=== PATIENT | male | born 1960 | race Caucasian/White ===

== ENCOUNTER 2017-09-16 20:10 | Inpatient (IN) | payer MEDICARE, MEDICAID ==
[~2017-09-16] VITALS: Ht 167.6 cm; Wt 51.7 kg
--- NOTE | 2017-09-16 20:00 | NUR ---
MYNOR RN NOTES RECEIVED REPORT FROM ER NURSE LEA. RECEIVED PATIENT ON GURNEY, AWAKE ON VENT,NON VERBAL.SAEED PICC LINE DOUBLE LUMEN AND LEFT HAND 20G IV LINES ARE NOTED, PATIENT, INTACT. NO IV FLUIDS FOR NOW. PT HAS NO SOB OR LABORED BREATHING. KINGSTON CATHETER IN PLACE DRAINING YELLOW, CLEAR URINE.PT HAS MULTIPLE WOUNDS ON HIS BODY, PICTURES TAKEN.PT IS NPO WITH CLAMPED GT. ALL SAFETY MEASURES IMPLEMENTED, BED IN LOW, LOCKED POSITION, CALL LIGHT IN REACH. WILL CONT. TO MONITOR.
[2017-09-16 20:15] VITALS: BP 90/64
--- NOTE | 2017-09-16 20:43 | NUR ---
SENT BY PMD FROM SN[facility] DT LOW H/H. PATIENT IS AWAKE, NON VERBAL. NOTED VENT AND TRACHE DEPENDENT- SETTING ORDERED AND TOLERATED. PATIENT NOTED WITH GT, NOTED WITH NO RESISTANCE. FC INDWELLING WELL. SKIN IS WARM TO TOUCH AND NON DIAPHORETIC,. PATIENT IS AFEBRILE.. VSS
--- NOTE | 2017-09-16 20:48 | NUR ---
PT RECEIVED FROM TRANSPORT ON VENTILATOR VIA TRACH. PT PLACED ON LTV ON SETTINGS RECEIVED FROM TRANSPORT CHARTED. AMBU BAG AT BEDSIDE. ALARMS SET AND AUDIBLE. DISCONNECT ALARMS CHECKED. VENT PLUGGED INTO RED OUTLET. SUCTIONED A SMALL AMOUNT OF THICK WHITE SECRETIONS. TOLERATING SETTINGS AT THIS TIME. Addendum: 09/16/17 at 2053 by YA MORENO RT Amended: Links added.
[2017-09-16 20:54] LABS: BASOPHILS % (AUTO) 0.5 % (0.0-2.0); EOSINOPHILS % (AUTO) 1.9 % (0.0-6.0); HEMATOCRIT 26 % (39-51); HEMOGLOBIN 9.5 g/dL (13.5-17.5); LYMPHOCYTES # (AUTO) 1.1 /CMM (0.8-4.8); LYMPHOCYTES % (AUTO) 12.9 % (20.0-44.0); MEAN CORPUSCULAR HGB CONC 36 g/dl (31.0-36.0); MEAN CORPUSCULAR VOLUME 102 fL (80-96); MONOCYTES # (AUTO) 0.9 /CMM (0.1-1.30); MONOCYTES % (AUTO) 10.6 % (2.0-12.0); NEUTROPHILS % (AUTO) 74.1 % (43.0-81.0); PLATELET COUNT (AUTO) 339 /CMM (150-450); RDW COEFFICIENT OF VARIATION 16.1 (11.5-15.0); RED BLOOD CELL COUNT(AUTO) 2.57 MIL/uL (4.5-6.0); WHITE BLOOD COUNT (AUTO) 8.2 K/uL (4.3-11.0)
[2017-09-16 21:05] LABS: INR 1.19 (0.85-1.15)
--- NOTE | 2017-09-16 21:05 | NUR ---
DR LANDIN CAME TO SPEAK WITH DR RAMIREZ.
[2017-09-16 21:06] LABS: ALANINE AMINOTRANSFERASE 17 U/L (12-78); ALBUMIN 2.6 g/dL (3.4-5.0); ALKALINE PHOSPHATASE 118 U/L (46-116); ASPARTATE AMINOTRANSFERASE 20 U/L (15-37); BILIRUBIN,DIRECT 0.1 mg/dL (0.0-0.2); BILIRUBIN,TOTAL 0.4 mg/dL (0.2-1.0); CALCIUM, SERUM 9.2 mg/dL (8.5-10.1); CARBON DIOXIDE 24 mmol/L (21-32); CHLORIDE 101 mmol/L (98-107); GLUCOSE 86 mg/dL (74-106); POTASSIUM 4.5 mmol/L (3.5-5.1); SODIUM SERUM 134 mmol/L (136-145); TOTAL PROTEIN, SERUM 8.3 g/dL (6.4-8.2); UREA NITROGEN, BLOOD 9 mg/dL (7-18)
[2017-09-16 21:10] LABS: TROPONIN I < 0.017 ng/mL (0.00-0.056)
--- NOTE | 2017-09-16 21:30 | NUR ---
CALLED NURSING CLINICAL EDUCATION ACADEMIC COORDINATOR AND REQUESTED A TELE BED.
--- NOTE | 2017-09-16 21:36 | NUR ---
PT IS ASSIGNED TO #: [id number], PT IS DIAGNOSED WITH PNEUMOTHORAX, AND DR LANDIN IS THE ACCEPTING MD.
--- NOTE | 2017-09-16 22:15 | NUR ---
REPORT GIVEN TO JOAQUIN SERRANO FOR CONTINUITY OF CARE
[2017-09-16] MEDS ORDERED: ALBU2.5V38 IH (22:22)
[2017-09-16] MEDS ORDERED: IPRA0.2S49 IH (22:22)
[2017-09-16] MEDS ORDERED: ZINC220T GT (22:22)
[2017-09-16] MEDS ORDERED: PROT946L GT (22:22)
[2017-09-16] MEDS ORDERED: ASCO500T10 GT (22:22)
[2017-09-16] MEDS ORDERED: OMEP20TA5 GT (22:22)
[2017-09-16] MEDS ORDERED: L. A1TAB10 GT (22:22)
[2017-09-16] MEDS ORDERED: HYDR-552 GT ×2 (22:22)
[2017-09-16] MEDS ORDERED: LEVO88TA5 GT (22:22)
[2017-09-16] MEDS ORDERED: APIX2.5T GT (22:22)
[2017-09-16] MEDS ORDERED: MIDO10TA GT (22:22)
[2017-09-16] MEDS ORDERED: MULT-213 GT (22:22)
[2017-09-16] MEDS ORDERED: METO10TA3 GT (22:22)
[2017-09-16] MEDS ORDERED: FERR220S6 GT (22:22)
[2017-09-16 22:30] VITALS: BP 102/72
[2017-09-17] VITALS: BP 100/63
[2017-09-17] MEDS ORDERED: METOCLOPRAMIDE HCL 10 MG TABLET GT PRN
[2017-09-17] MEDS ORDERED: HYDROCODONE/APAP 5/325MG 1 EACH TABLET GT PRN
[2017-09-17] MEDS ORDERED: ONDANSETRON HCL/PF 4 MG/2 ML VIAL IVP PRN
[2017-09-17] MEDS ORDERED: Z GUARD REMEDY 2 OZ OINT TP PRN
[2017-09-17] MEDS ORDERED: ALBUTEROL FS 2.5 MG/3 ML VIAL.NEB IH PRN
[2017-09-17] MEDS ORDERED: ZOLPIDEM TARTRATE 5 MG TABLET PO PRN
[2017-09-17] MEDS ORDERED: IPRATROPIUM NEB FS 0.5 MG/2.5 ML AMPUL.NEB IH PRN
[2017-09-17] MEDS ORDERED: MAG HYDROX/AL HYDROX/SIMETH 30 ML UDC PO PRN
[2017-09-17] MEDS ORDERED: ACETAMINOPHEN 325 MG TABLET PO PRN
[2017-09-17] MEDS ORDERED: MAGNESIUM HYDROXIDE 30 ML UDC PO PRN
--- NOTE | 2017-09-17 01:00 | NUR ---
RN SPOKE TO JOAQUIN SERNA FROM [facility] , PER DAPHNE THEY DONT HAVE ADVANCE DIRECTIVE INFORMATION AVAILABLE, GTF ORDER AT FACILITY JEVITY 1.5 @ 70 ML/HR X 16 HRS.
--- NOTE | 2017-09-17 01:06 | NUR ---
RN SPOKE TO TERRIE LANDIN DNP, CONTINUE GTF ORDER FROM FACILITY. JEVITY 1.5 @ 70ML/HR X 16 HRS
[2017-09-17] MEDS ORDERED: JEVITY 1.2 CAL 1,000 ML BOTTLE GT PRN ×3 (01:30→13:30)
[2017-09-17] MEDS ORDERED: GLUCERNA 1.2 1,000 ML BOTTLE NG PRN (02:30)
[2017-09-17 04:00] VITALS: BP 103/64
[2017-09-17] MEDS: MIDODRINE HCL (5MG) 5 MG TABLET GT SCH ×3 (05:16→20:40)
[2017-09-17 06:34] LABS: BASOPHILS % (AUTO) 0.4 % (0.0-2.0); EOSINOPHILS % (AUTO) 1.9 % (0.0-6.0); HEMATOCRIT 27 % (39-51); HEMOGLOBIN 9.2 g/dL (13.5-17.5); LYMPHOCYTES # (AUTO) 1.2 /CMM (0.8-4.8); LYMPHOCYTES % (AUTO) 16.5 % (20.0-44.0); MEAN CORPUSCULAR HGB CONC 34 g/dl (31.0-36.0); MEAN CORPUSCULAR VOLUME 104 fL (80-96); MONOCYTES # (AUTO) 0.8 /CMM (0.1-1.30); MONOCYTES % (AUTO) 11.4 % (2.0-12.0); NEUTROPHILS % (AUTO) 69.8 % (43.0-81.0); PLATELET COUNT (AUTO) 304 /CMM (150-450); RED BLOOD CELL COUNT(AUTO) 2.61 MIL/uL (4.5-6.0); WHITE BLOOD COUNT (AUTO) 7.2 K/uL (4.3-11.0)
[2017-09-17 07:09] LABS: CREATININE 1.1 mg/dL (0.6-1.3); MAGNESIUM 1.9 mg/dL (1.8-2.4); PHOSPHORUS 3.9 mg/dL (2.5-4.9); POTASSIUM 4.4 mmol/L (3.5-5.1)
[2017-09-17 07:28] LABS: THYROID STIMULATING HORMONE 1.076 uIU/mL (0.358-3.74)
[2017-09-17] MEDS ORDERED: BLOOD SUGAR DIAGNOSTIC 1 EACH STRIP IN SCH (07:30)
--- NOTE | 2017-09-17 07:30 | NUR ---
HAND CANDY MOLDER INITIAL NOTES: RECEIVED PT IN BED, AWAKE. RESPONSIVE TO VERBAL AND TACTILE STIMULI. OPENS EYES, NON-VERBAL. ON VENT SETTINGS ORDERED, PT TOLERATES WELL. TRACH PORTEX #[address] ON TELE MONITOR- SR. KINGSTON CATHETER IN PLACE, FLOWING YELLOW URINE. DIAPER ON. GT FEEDING RUNNING ORDERED, GLUCERNA 40CC/HR- TOLERATING WELL. RESIDUAL 10CC NOTED. SAEED PICC LINE IN PLACE, DOUBLE LUMEN. IV TO L HAND #20 GAUGE, PATENT AND FLUSHES WELL. PT IN NO APPARENT DISTRESS AT THIS TIME. BED IN LOW, LOCKED POSITION. CALL LIGHT WITHIN REACH. PLAN OF CARE DISCUSSED WITH PT. WILL CONTINUE TO MONITOR.
[2017-09-17 08:00] VITALS: BP 93/62
[2017-09-17] MEDS ORDERED: DEXTROSE 50%-WATER 50 ML DISP.SYRIN IV PRN ×2 (08:00)
[2017-09-17] MEDS: FERROUS SULFATE UDC 300 MG/5 ML UDC GT SCH (08:38)
[2017-09-17] MEDS: PANTOPRAZOLE 40 MG VIAL IV SCH (08:38)
[2017-09-17] MEDS: LEVOTHYROXINE SODIUM 88 MCG TABLET GT SCH (08:38)
[2017-09-17] MEDS: PROSOURCE / PROSTAT (PYXIS) 30 ML UDC GT SCH ×3 (08:50→16:44)
[2017-09-17] MEDS ORDERED: PROSTAT (PYXIS) 30 ML UDC GT SCH (09:00)
[2017-09-17] MEDS ORDERED: APIXABAN 2.5 MG TABLET PO ONE (09:00)
--- NOTE | 2017-09-17 10:08 | NUR ---
STENCIL PRINTER NOTES: SPOKE WITH DR NIELSON, NOTIFIED RESULTS OF CXR. NEW ORDERS TO REPEAT CXR NOW.
--- NOTE | 2017-09-17 10:59 | NUR ---
RECTIFICATION PRINTER NOTES: SPOKE WITH DIETITIAN. WITH ORDER TO D/C GLUCERNA AND START JEVITY 1.2 AT 40CC/HR. WILL WAIT FOR FURTHER ORDERS.
[2017-09-17] MEDS: BLOOD SUGAR DIAGNOSTIC 1 EACH STRIP IN SCH ×2 (11:15→17:06)
--- NOTE | 2017-09-17 11:18 | NUR ---
MAINTENANCE OPERATOR NOTES: RELAYED CXR RESULTS TO DR NIELSON: INCREASING PNEUMOTHORAX. WITH NEW ORDER RECEIVED TO STOP THE PEEP AND REPEAT CXR TOMORROW. RT AWARE.
[2017-09-17 12:00] VITALS: BP 90/49
--- NOTE | 2017-09-17 13:08 | NUR ---
DIELECTRIC PRESS OPERATOR NOTES: RECEIVED CALL BACK FROM [facility]. WITH ORDERS FOR JEVITY 1.2 AT 55ML/HR X 24HRS, CONTINUE PROSTAT TID, START MULTIVITAMIN QDAY AND VITAMIN C QDAY.
--- NOTE | 2017-09-17 13:40 | NUR ---
SENIOR PLANNING ANALYST NOTES: DR NICE IN TO SEE PT. NEW ORDER RECEIVED FOR L HEEL DEBRIDEMENT. WILL FOLLOW UP WITH RESPONSIBLE CONSTITUTION PARTY FOR CONSENT.
--- NOTE | 2017-09-17 13:50 | NUR ---
INTERNET MARKETING SPECIALIST NOTES FAXED CONSENT FORM FOR RIGHT FOOT WOUND DEBRIDEMENT. TO VINITA BOWSER, RESPONSIBLE CONSTITUTION PARTY, PER HIS REQUEST. WILL FOLLOW UP.
--- NOTE | 2017-09-17 15:40 | NUR ---
HEEL SEAT FLAP STAPLER NOTES: DR. RAMIREZ IN TO SEE PATIENT. NEW ORDERS RECEIVED FOR BILATERAL HIPS AND SACRUM WOUND DEBRIDEMENT. WILL FOLLOW UP WITH RESPONSIBLE LIBERTARIAN FOR CONSENT.
[2017-09-17 16:00] VITALS: BP 120/80
--- NOTE | 2017-09-17 16:41 | NUR ---
LIGHT EQUIPMENT OPERATOR NOTE CONSENT FOR DEBRIDEMENT OBTAINED WITH FAMILY
--- NOTE | 2017-09-17 16:43 | NUR ---
BAR PORTER NOTE CALLED PHARMACY TO GET MIARCLE ALEXANDER STATED THAT WILL BRING SOON
[2017-09-17] MEDS: APIXABAN 2.5 MG TABLET GT SCH (16:44)
[2017-09-17] MEDS: DAKINS QUARTER STRENGTH (0.125%) 480 ML BOTTLE TOP SCH (17:41)
--- NOTE | 2017-09-17 18:15 | NUR ---
PICK UP OPERATOR END NOTES: PT IN BED, AWAKE, EYES OPEN. RESPONSIVE TO VERBAL/TACTILE STIMULI. CONTINUE VENT/TRACH ORDERED. PT TOLERATES WELL. NO SOB NOTED AT THIS TIME. PT IN NO APPARENT DISTRESS. KINGSTON CATH FLOWING YELLOW URINE. PICC LINE FLUSHED AND PATENT. GT FEEDING FLOWING AT 55ML/HR ORDERED. PT TOLERATING WELL. BED IN LOW LOCKED POSITION. CALL LIGHT WITHIN REACH. WILL ENDORSE TO PM SHIFT FOR CONTINUITY OF CARE.
--- NOTE | 2017-09-17 19:15 | NUR ---
GRAPHICS COORDINATOR NOTE PATIENT RECEIVED RESTING COMFORTABLY WITH HOB ELEVATED, NON VERBAL, TRACH TO MECHANICAL VENT ON SETTINGS ORDERED, TELE SR 71, F/C DRAINING TO GRAVITY, SKIN KEPT CLEAN AND DRY, G TUBE PATENT FLUSHING WELL WITH JEVITY 1.2 AT 55 ML/HR, SAEED PICC LINE, PATENT FLUSHING WELL SITE CDI, LEFT HAND #20G SL PATENT FLUSHING WELL, SAFETY MAINTAINED AT ALL TIMES, BED IN LOW LOCKED POSITION, CALL LIGHT WITHIN REACH, WILL CONTINUE TO MONITOR FOR ANY CHANGES IN CONDITION.
[2017-09-17 20:00] VITALS: BP 93/95
[2017-09-18] VITALS: BP 107/70
[2017-09-18 04:00] VITALS: BP 94/64
[2017-09-18] MEDS: MIDODRINE HCL (5MG) 5 MG TABLET GT SCH ×3 (05:08→22:04)
[2017-09-18] MEDS: BLOOD SUGAR DIAGNOSTIC 1 EACH STRIP IN SCH ×4 (06:53→17:54)
--- NOTE | 2017-09-18 07:30 | NUR ---
RN NOTES RECEIVED PATIENT ON [facility] VENT WITH BREATHING NORMAL, EVEN AND UNLABORED. NO SOB NOTED. NO ACUTE DISTRESS NOTED. VENT SETTING REVIEWED AND VERIFIED. TOLERATED WELL. TELE MONITOR REVEALS SR, HR=85. SAEED PICC LINE IS PATENT AND INTACT. CONT ON GT FEED JEVITY 1.2 MARTI @ 55CC/HR. TOLERATED WELL. NO RESIDUAL NOTED. F/C IS PATENT AND INTACT, DRAINING WITH GRAVITY. KEPT CLEAN, DRY AND COMFORTABLE. ALL NEEDS ATTENDED. SAFETY MEASURE OBSERVED. CALL LIGHT WITH IN REACH. WILL CONT TO MONITOR.
[2017-09-18 08:00] VITALS: BP_SYST 109; BP_SYST 126; BP_DIAS 68; BP_DIAS 83
--- NOTE | 2017-09-18 08:10 | NUR ---
WOUND CARE CONSULT WOUND CARE RECEIVED CONSULT FOR MULTIPLE PRESSURE SORES. WOUND CARE WILL DEFER CONSULT AND ALL TREATMENT PLANS TO SURGICAL TEAM WHO ARE CURRENTLY FOLLOWING. PATIENT WITH GIULIANA AT 10, ALL PRESSURE ULCER PREVENTION MEASURES NOTED TO BE IN PLACE AT THIS TIME. LOW AIRLOSS THERAPY NOTED TO BE IN PLACE FOR TREATMENT.
[2017-09-18] MEDS: PANTOPRAZOLE 40 MG VIAL IV SCH (08:53)
[2017-09-18] MEDS: LEVOTHYROXINE SODIUM 88 MCG TABLET GT SCH (08:53)
[2017-09-18] MEDS: MULTIVITAMINS,THERAGRAN 1 UDTAB TABLET GT SCH (08:53)
[2017-09-18] MEDS: FERROUS SULFATE UDC 300 MG/5 ML UDC GT SCH (08:53)
[2017-09-18] MEDS: ASCORBIC ACID 500 MG TABLET GT SCH (08:53)
[2017-09-18] MEDS: APIXABAN 2.5 MG TABLET GT SCH ×2 (08:53→17:54)
[2017-09-18] MEDS: PROSOURCE / PROSTAT (PYXIS) 30 ML UDC GT SCH ×3 (08:55→17:57)
[2017-09-18] MEDS: DAKINS QUARTER STRENGTH (0.125%) 480 ML BOTTLE TOP SCH (08:55)
[2017-09-18] MEDS ORDERED: ZOLPIDEM TARTRATE 5 MG TABLET GT PRN (09:38)
[2017-09-18] MEDS ORDERED: MAG HYDROX/AL HYDROX/SIMETH 30 ML UDC GT PRN (09:38)
[2017-09-18] MEDS ORDERED: MAGNESIUM HYDROXIDE 30 ML UDC GT PRN (09:38)
[2017-09-18 12:00] VITALS: BP 101/69
[2017-09-18 16:00] VITALS: BP 94/60
[2017-09-18] MEDS: INSULIN REGULAR, HUMAN 100 UNIT/ML 3 ML VIAL SQ PRN (17:59)
--- NOTE | 2017-09-18 18:58 | NUR ---
RN NOTES PATIENT ENDORSED TO NEXT SHIFT IN STABLE CONDITION FOR CONTINUITY OF CARE. NO SIGNIFICANT CHANGES NOTED. KEPT CLEAN, DRY AND COMFORTABLE. ALL NEEDS ATTENDED. SAFETY MEASURE OBSERVED. CALL LIGHT WITH IN REACH. WILL CONT TO MONITOR.
[2017-09-18] MEDS: JEVITY 1.2 CAL 1,000 ML BOTTLE GT PRN (19:03)
[2017-09-18 20:00] VITALS: BP 108/67
--- NOTE | 2017-09-18 20:06 | NUR ---
RN NOTES PATIENT RESTING COMFORTABLY IN BED WITH NO RESPIRATORY DISTRESS OR SHORTNESS OF BREATH. BREATHING EVEN AND UNLABORED. NO PHYSICAL MANIFESTATION OF PAIN OR DISCOMFORT. FC PATENT AND INTACT DRAINING CLEAR YELLOW WITH NO FOUL ODOR URINE. NEEDS ATTENDED. KEPT CLEAN AND DRY.
[2017-09-19] VITALS (7 sets, daily range): BP systolic 89–130; BP diastolic 62–72
[2017-09-19] MEDS: INSULIN REGULAR, HUMAN 100 UNIT/ML 3 ML VIAL SQ PRN ×5 (00:17→23:56)
[2017-09-19] MEDS: BLOOD SUGAR DIAGNOSTIC 1 EACH STRIP IN SCH ×5 (00:21→23:42)
--- NOTE | 2017-09-19 04:46 | NUR ---
PT REC'D TRACHED ON [facility] VENT SETTINGS CHARTED. NO RESP DISTRESS NOTED. NO CHANGES MADE THROUGHOUT SHIFT. SX'D THICK YELLOW MOD AMT OF SECRETIONS. AMBU BAG BEDSIDE. ALARMS ARE SET AND AUDIBLE. VENT PLUGGED INTO RED OUTLET. WILL CONTINUE TO MONITOR. Addendum: 09/19/17 at 0447 by CHAO HERNANDEZ RT Amended: Links added.
[2017-09-19] MEDS: MIDODRINE HCL (5MG) 5 MG TABLET GT SCH ×3 (05:41→21:43)
[2017-09-19] MEDS: JEVITY 1.2 CAL 1,000 ML BOTTLE GT PRN (05:48)
--- NOTE | 2017-09-19 06:31 | NUR ---
RN CLOSING NOTES NO SIGNIFICANT CHANGE OF CONDITION. ALERT AND RESPONSIVE, NOTED WITH EYE TRACKING. NON VERBAL. NO RESPIRATORY DISTRESS OR SHORTNESS OF BREATH. BREATHING EVEN AND UNLABORED. VITAL SIGNS WNL. FEEDING WELL TOLERATED. FC IN PLACE. NEEDS ATTENDED. WILL ENDORSE TO AM SHIFT FOR CONTINUITY OF CARE
--- NOTE | 2017-09-19 07:30 | NUR ---
ITEM PROCESSOR OPENING NOTES RECEIVED PT. IN BED ON MECHANICAL VENTILATOR BREATHING UNLABORED. PT. IS ALERT, AND NON VERBAL. PT. IS BREATHING ON OXYGEN WITH A PROTEX SIZE 8 TRACHEOSTOMY, VENT SETTING AC 12, TV 500, FI02 30%, SP02 99%, 85 BPM. NO S/S OF ACUTE DISTRESS. IV ACCESS ON LEFT HAND GAUGE 20 IS INTACT, AND PATENT. PT. HAS A LEFT UPPER ARM CENTRAL LINE, DOUBLE LUMEN. PT. HAS A KINGSTON CATHETER. G TUBE FEEDING RUNNING AT 55 ML/HR. PT. IS ON A FIRST STEP MATTRESS. BED IS IN LOWEST, AND LOCKED POSITION. CALL LIGHT WITHIN REACH. WILL CONTINUE TO ASSESS AND MONITOR.
[2017-09-19] MEDS: APIXABAN 2.5 MG TABLET GT SCH ×2 (09:54→17:25)
[2017-09-19] MEDS: PANTOPRAZOLE 40 MG VIAL IV SCH (10:00)
[2017-09-19] MEDS: FERROUS SULFATE UDC 300 MG/5 ML UDC GT SCH (10:01)
[2017-09-19] MEDS: LEVOTHYROXINE SODIUM 88 MCG TABLET GT SCH (10:01)
[2017-09-19] MEDS: DAKINS QUARTER STRENGTH (0.125%) 480 ML BOTTLE TOP SCH (10:17)
[2017-09-19] MEDS: ASCORBIC ACID 500 MG TABLET GT SCH (10:26)
[2017-09-19] MEDS: MULTIVITAMINS,THERAGRAN 1 UDTAB TABLET GT SCH (10:26)
[2017-09-19] MEDS: PROSOURCE / PROSTAT (PYXIS) 30 ML UDC GT SCH ×3 (10:26→17:13)
--- NOTE | 2017-09-19 19:04 | NUR ---
TOXICS PROGRAM OFFICER CLOSING NOTES PT. IS IN BED ON MECHANICAL VENTILATOR BREATHING UNLABORED. PT. IS ALERT, AND NON VERBAL. PT. IS BREATHING ON OXYGEN WITH A PROTEX SIZE 8 TRACHEOSTOMY, VENT SETTING AC 12, TV 500, FI02 30%, SP02 99%, 89 BPM. NO S/S OF ACUTE DISTRESS. IV ACCESS ON LEFT HAND GAUGE 20 IS INTACT, AND PATENT. PT. HAS A LEFT UPPER ARM CENTRAL LINE, DOUBLE LUMEN. PT. HAS A KINGSTON CATHETER REMOVED 425 CC OF CLEAR, AND PANCHO URINE. G TUBE FEEDING RUNNING AT 55 ML/HR. PT. IS ON A FIRST STEP MATTRESS. WOUND CARE PERFORMED PER MD ORDERS. BED IS IN LOWEST, AND LOCKED POSITION. CALL LIGHT WITHIN REACH. WILL ENDORSE REPORT TO NURSE.
--- NOTE | 2017-09-19 20:16 | NUR ---
CONSULTING GROUP ANALYST OPENING NOTES RECEIVED PT. IN BED ON MECHANICAL VENTILATOR BREATHING UNLABORED. PT. IS ALERT, AND NON VERBAL. PT. IS BREATHING ON OXYGEN WITH A PROTEX SIZE 8 TRACHEOSTOMY, VENT SETTING AC 12, TV 500, FI02 30%, SP02 99%, BP LOW 95/67. NO S/S OF ACUTE DISTRESS. IV ACCESS ON LEFT HAND GAUGE 20 IS INTACT, AND PATENT. PT. HAS A LEFT UPPER ARM CENTRAL LINE, DOUBLE LUMEN. PT. HAS A KINGSTON CATHETER. G TUBE FEEDING RUNNING AT 55 ML/HR. PT. IS ON A FIRST STEP MATTRESS. BED IS IN LOWEST, AND LOCKED POSITION. CALL LIGHT WITHIN REACH. WILL CONTINUE TO ASSESS AND MONITOR.
[2017-09-20] VITALS (8 sets, daily range): BP systolic 84–112; BP diastolic 52–64
[2017-09-20] MEDS: JEVITY 1.2 CAL 1,000 ML BOTTLE GT PRN (04:31)
[2017-09-20] MEDS: MIDODRINE HCL (5MG) 5 MG TABLET GT SCH ×3 (04:32→21:12)
[2017-09-20] MEDS: BLOOD SUGAR DIAGNOSTIC 1 EACH STRIP IN SCH ×4 (05:25→23:55)
--- NOTE | 2017-09-20 06:05 | NUR ---
RN TEL CLOSING NOTE PT ENDORSED STABLE, HOB ELEVATED KEPT CLEAN AND DRY, VS STABLE, BP LOW, ON MIDODRINE DOSE AT 5 AM GIVEN ORDERED, WOUND TX CONT'D ORDERED, WELL REPOSITIONED, WILL ENDORSE TO AM SHIFT NURSE TO CONT WOUND TX AND REPOSITION OF PT, S/P WOUND DEBRIDEMENT 09/18. SAFETY MEASURES UNDER TAKEN.
--- NOTE | 2017-09-20 07:10 | NUR ---
CONSTRUCTION MANAGEMENT INSTRUCTOR OPENING NOTES RECEIVED PT IN BED ,HAS TRACH AND VENTILATOR BREATHING UNLABORED. PT IS ALERT, AND NON VERBAL. VENT SETTING AC 12, TV 500, FI02 30% . NO S/S OF ACUTE DISTRESS. IV ACCESS ON LEFT HAND GAUGE 20 IS INTACT, AND PATENT. PT. HAS A LEFT UPPER ARM CENTRAL LINE, DOUBLE LUMEN. HAS A KINGSTON CATHETER. G TUBE FEEDING RUNNING AT 55 ML/HR. PT IS ON A FIRST STEP MATTRESS. BED IS IN LOWEST, AND LOCKED POSITION.SRX3. CALL LIGHT WITHIN REACH. WILL CONTINUE TO MONITOR.
[2017-09-20] MEDS: PANTOPRAZOLE 40 MG VIAL IV SCH (08:09)
[2017-09-20] MEDS: MULTIVITAMINS,THERAGRAN 1 UDTAB TABLET GT SCH (08:09)
[2017-09-20] MEDS: FERROUS SULFATE UDC 300 MG/5 ML UDC GT SCH (08:09)
[2017-09-20] MEDS: PROSOURCE / PROSTAT (PYXIS) 30 ML UDC GT SCH ×3 (08:09→17:34)
[2017-09-20] MEDS: APIXABAN 2.5 MG TABLET GT SCH ×2 (08:09→17:35)
[2017-09-20] MEDS: ASCORBIC ACID 500 MG TABLET GT SCH (08:09)
[2017-09-20] MEDS: LEVOTHYROXINE SODIUM 88 MCG TABLET GT SCH (08:09)
[2017-09-20] MEDS: DAKINS QUARTER STRENGTH (0.125%) 480 ML BOTTLE TOP SCH (08:10)
[2017-09-20] MEDS: INSULIN REGULAR, HUMAN 100 UNIT/ML 3 ML VIAL SQ PRN (12:10)
--- NOTE | 2017-09-20 13:24 | NUR ---
RN NOTES NOTED WITH BLOOD PRESSURE OF 84/52.MIDODRINE GIVEN.BLOOD PRESSURE NOT GETTING STABILIZED RECHECKED BP 79/42. MADE AWARE.GOT NEW ORDER FOR IV NS BOLUS [id number].MADE AWARE ABOUT THE TEMP OF 101.8F.TYLENOL GIVEN AND ON COOLING MEASURES.CONTINUE TO MONITOR.
[2017-09-20] MEDS ORDERED: IV NS 0.9% 500 ML IV ONE (13:30)
--- NOTE | 2017-09-20 14:15 | NUR ---
RN NOTES RECHECKED BLOOD PRESSURE.101/52.CONTINUE TO MONITOR.
--- NOTE | 2017-09-20 18:34 | NUR ---
GARMENT CUTTER SHIFT END NOTES PT IN BED ,HAS TRACH AND VENTILATOR BREATHING UNLABORED. PT IS ALERT, AND NON VERBAL. VENT SETTING AC 12, TV 500, FI02 30% . NO S/S OF ACUTE DISTRESS. IV ACCESS ON LEFT HAND GAUGE 20 IS INTACT, AND PATENT. PT. HAS A LEFT UPPER ARM CENTRAL LINE, DOUBLE LUMEN. HAS A KINGSTON CATHETER. G TUBE FEEDING RUNNING AT 55 ML/HR. PT IS ON A FIRST STEP MATTRESS. BED IS IN LOWEST, AND LOCKED POSITION.SRX3. CALL LIGHT WITHIN REACH. BP IS 120/67.WILL ENDORSE TO PM NURSE FOR JEWELL.
--- NOTE | 2017-09-20 19:11 | NUR ---
CARGO MATE OPENING NOTES RECEIVED PT IN BED ,HAS TRACH AND VENTILATOR BREATHING UNLABORED. PT IS ALERT, AND NON VERBAL. VENT SETTING AC 12, TV 500, FI02 30% . NO S/S OF ACUTE DISTRESS. IV ACCESS ON LEFT HAND GAUGE 20 IS INTACT, S/P BOLUS NS 500ML X1 FOR LOW BP, NOW 120/67. PT HAS A LEFT UPPER ARM CENTRAL LINE, DOUBLE LUMEN. HAS A KINGSTON CATHETER. G TUBE FEEDING RUNNING AT 55 ML/HR, NO RESIDUAL. PT IS ON A FIRST STEP MATTRESS. BED IS IN LOWEST, AND LOCKED POSITION.SRX3. CALL LIGHT WITHIN REACH. WILL CONTINUE TO MONITOR.
[2017-09-20] MEDS: HYDROGEL DRESSING 90 GM TUBE TP SCH (21:26)
[2017-09-21] VITALS: BP 112/61
--- NOTE | 2017-09-21 00:15 | NUR ---
PT RECEIVED TRACH SHILEY 8 ON VENT WITH NOTED SETTINGS. PT TOLERATING VENT SETTINGS. SUCTIONED MODERATE AMOUNT OF YELLOW THICK SECRETIONS. NO RESP DISTRESS NOTED. VENT ALARMS SET AND AUDIBLE. AMBU BAG AT BEDSIDE. VENT PLUGGED INTO RED OUTLET. WILL CONTINUE TO MONITOR.
[2017-09-21 04:00] VITALS: BP 111/61
[2017-09-21] MEDS: JEVITY 1.2 CAL 1,000 ML BOTTLE GT PRN (04:34)
[2017-09-21] MEDS: MIDODRINE HCL (5MG) 5 MG TABLET GT SCH ×3 (04:36→21:19)
[2017-09-21] MEDS: BLOOD SUGAR DIAGNOSTIC 1 EACH STRIP IN SCH ×4 (05:00→23:46)
--- NOTE | 2017-09-21 07:40 | NUR ---
RT PATIENT REC'D TRACHED ON [facility] VENT WITH ORDERED SETTINGS FLAQUITA WELL. VENT ALARMS CHECKED + AUDIBLE. CUFF PRESSURE CHECKED LACROSSE PLAYER. PATIENT TRACH SUCTIONED WITH MOD AMT OF PALE SEMITHICK SECRETIONS. B/S DIM COARSE. AMBU BAG AND BACK UP TRACH AT HOB. CONT CURRENT PLAN OF RESP CARE. Addendum: 09/21/17 at 1559 by DAVID CAMACHO RT Amended: Links added.
--- NOTE | 2017-09-21 07:43 | NUR ---
RN TEL CLOSING NOTE PT ENDORSED TO AM SHIFT, CONT ON SAME PLAN OF CARE AND TX, NO CHANGES NOTED, VS BP STABLE THROUGH SHIFT. WILL ENDORSE TO AM SHIFT RN TO MONITOR.
[2017-09-21 08:00] VITALS: BP 109/69
[2017-09-21] MEDS: DAKINS QUARTER STRENGTH (0.125%) 480 ML BOTTLE TOP SCH (08:35)
[2017-09-21] MEDS: HYDROGEL DRESSING 90 GM TUBE TP SCH ×2 (08:35→21:19)
[2017-09-21] MEDS: PANTOPRAZOLE 40 MG VIAL IV SCH (08:43)
[2017-09-21] MEDS: ASCORBIC ACID 500 MG TABLET GT SCH (08:43)
[2017-09-21] MEDS: MULTIVITAMINS,THERAGRAN 1 UDTAB TABLET GT SCH (08:43)
[2017-09-21] MEDS: APIXABAN 2.5 MG TABLET GT SCH ×2 (08:43→16:21)
[2017-09-21] MEDS: PROSOURCE / PROSTAT (PYXIS) 30 ML UDC GT SCH ×3 (08:43→16:22)
[2017-09-21] MEDS: FERROUS SULFATE UDC 300 MG/5 ML UDC GT SCH (08:43)
[2017-09-21] MEDS: LEVOTHYROXINE SODIUM 88 MCG TABLET GT SCH (08:43)
--- NOTE | 2017-09-21 09:12 | NUR ---
CORPORATE DEVELOPMENT MANAGER NOTES SEEN BY WITH NEW ORDER RELATED TO PSEUDOMONAS GROWTH IN THE SPUTUM.NOTIFIED THAT LABS LAST DONE ON 09/17/17.CONTINUE TO MONITOR.
[2017-09-21 12:00] VITALS: BP 95/56
[2017-09-21] MEDS: PIPERACILLIN /TAZOBACTAM 4.5 G in IV D5W 50 ML IV SCH ×3 (12:26→23:37)
[2017-09-21] MEDS: INSULIN REGULAR, HUMAN 100 UNIT/ML 3 ML VIAL SQ PRN ×2 (12:27→23:50)
[2017-09-21 16:00] VITALS: BP 127/65
--- NOTE | 2017-09-21 18:58 | NUR ---
OUTSIDE INSTALLER APPRENTICE SHIFT END NOTES PT IN BED ,HAS TRACH AND VENTILATOR BREATHING UNLABORED. PT IS ALERT, AND NON VERBAL. VENT SETTING AC 12, TV 500, FI02 30% . NO S/S OF ACUTE DISTRESS. IV ACCESS ON LEFT HAND GAUGE 20 IS INTACT, AND PATENT. PT. HAS A LEFT UPPER ARM CENTRAL LINE, DOUBLE LUMEN. HAS A KINGSTON CATHETER.ON TELEMONITOR SR OF 78. G TUBE FEEDING RUNNING AT 55 ML/HR. PT IS ON A FIRST STEP MATTRESS. BED IS IN LOWEST, AND LOCKED POSITION.SRX3. CALL LIGHT WITHIN REACH. WILL ENDORSE TO PM NURSE FOR JEWELL.
--- NOTE | 2017-09-21 19:46 | NUR ---
PT RECEIVED TRACH SHILEY 8 ON VENT WITH NOTED SETTINGS . PT TOLERATING VENT SETTINGS. SUCTIONED SMALL AMOUNT OF YELLOW THICK SECRETIONS. NO RESP DISTRESS NOTED. VENT ALARMS SET AND AUDIBLE. AMBU BAG AT BEDSIDE. VENT PLUGGED INTO RED OUTLET. WILL CONTINUE TO MONITOR.
[2017-09-21 20:00] VITALS: BP 107/54
[2017-09-22] VITALS: BP 99/68
[2017-09-22 04:00] VITALS: BP 133/66
[2017-09-22] MEDS: MIDODRINE HCL (5MG) 5 MG TABLET GT SCH ×3 (05:36→20:28)
[2017-09-22] MEDS: JEVITY 1.2 CAL 1,000 ML BOTTLE GT PRN (05:36)
[2017-09-22] MEDS: BLOOD SUGAR DIAGNOSTIC 1 EACH STRIP IN SCH ×3 (05:36→17:46)
[2017-09-22] MEDS: PIPERACILLIN /TAZOBACTAM 4.5 G in IV D5W 50 ML IV SCH ×3 (06:02→17:46)
[2017-09-22 08:00] VITALS: BP 92/60
[2017-09-22] MEDS: PROSOURCE / PROSTAT (PYXIS) 30 ML UDC GT SCH ×3 (08:18→17:47)
[2017-09-22] MEDS: PANTOPRAZOLE 40 MG VIAL IV SCH (08:18)
[2017-09-22] MEDS: MULTIVITAMINS,THERAGRAN 1 UDTAB TABLET GT SCH (08:18)
[2017-09-22] MEDS: ASCORBIC ACID 500 MG TABLET GT SCH (08:19)
[2017-09-22] MEDS: APIXABAN 2.5 MG TABLET GT SCH ×2 (08:19→17:46)
[2017-09-22] MEDS: LEVOTHYROXINE SODIUM 88 MCG TABLET GT SCH (08:19)
[2017-09-22] MEDS: FERROUS SULFATE UDC 300 MG/5 ML UDC GT SCH (08:19)
[2017-09-22] MEDS: DAKINS QUARTER STRENGTH (0.125%) 480 ML BOTTLE TOP SCH (08:22)
[2017-09-22] MEDS: HYDROGEL DRESSING 90 GM TUBE TP SCH ×2 (08:22→20:29)
[2017-09-22 12:00] VITALS: BP 117/90
[2017-09-22 16:00] VITALS: BP_SYST 117; BP_SYST 90; BP_DIAS 55; BP_DIAS 90
[2017-09-22] MEDS: INSULIN REGULAR, HUMAN 100 UNIT/ML 3 ML VIAL SQ PRN (17:57)
--- NOTE | 2017-09-22 19:00 | NUR ---
RN NOTE PT REMAINED STABLE THROUGHOUT THE SHIFT, ALL MEDS GIVEN ORDERED, NEEDS MET. SAFETY MEASURES IMPLEMENTED. WILL ENDORSE TO SUPERINTENDENT OPERATIONS DIVISION.
[2017-09-22 20:00] VITALS: BP 90/52
--- NOTE | 2017-09-22 20:08 | NUR ---
RECEIVED PT TRACH SHLY 8 ON LTV VENT. NO RESP DISTRESS NOTED. PT TOLERATING VENT SETTINGS. SX'D FOR MOD AMT OF THICK YELLOW SECRETIONS. VENT ALARMS SET AND AUDIBLE. AMBU BAG AT BEDSIDE. VENT PLUGGED INTO RED OUTLET. WILL CONTINUE TO MONITOR. Addendum: 09/22/17 at 2009 by AMANDEEP SIERRA RT Amended: Links added.
--- NOTE | 2017-09-22 20:45 | NUR ---
RN NOTE TEMPERATURE OF 101.6F NOTED, NOTIFIED MAE MANRIQUE ALTERATION WORKER, NEW ORDERS WAS GIVEN AND CARRIED OUT, CHARGE NURSE IS AWARE
[2017-09-22] MEDS: ACETAMINOPHEN 650 MG/20.3 ML UDC GT PRN (21:23)
[2017-09-23] VITALS (8 sets, daily range): BP systolic 80–106; BP diastolic 54–71
[2017-09-23] MEDS: BLOOD SUGAR DIAGNOSTIC 1 EACH STRIP IN SCH ×4 (00:28→17:37)
[2017-09-23] MEDS: PIPERACILLIN /TAZOBACTAM 4.5 G in IV D5W 50 ML IV SCH ×4 (00:28→17:36)
[2017-09-23] MEDS: JEVITY 1.2 CAL 1,000 ML BOTTLE GT PRN (00:43)
[2017-09-23] MEDS: MIDODRINE HCL (5MG) 5 MG TABLET GT SCH ×3 (05:37→21:35)
[2017-09-23] MEDS: INSULIN REGULAR, HUMAN 100 UNIT/ML 3 ML VIAL SQ PRN (05:44)
--- NOTE | 2017-09-23 06:40 | NUR ---
RN NOTE PATIENT RESTED WELL AT NIGHT, AFEBRILE AT THIS TIME, NO RESPIRATORY DISTRESS NOTED, ON MECHANICAL VENTILATOR, SR ON THE MONITOR, WOUND CARE PROVIDED ORDERED, TURNED AND REPOSITIONED Q 2 HOURS, OFFLOADED EXTREMITIES, ALL SKIN PICTURES TAKEN AND PLACED IN THE CHART, MEASUREMENTS DONE, TUBE FEEDING TOLERATED WELL, ALL SAFETY MEASURES TAKEN, WILL ENDORSE TO AM SHIFT FOR JEWELL
[2017-09-23] MEDS: PROSOURCE / PROSTAT (PYXIS) 30 ML UDC GT SCH ×3 (08:46→17:37)
[2017-09-23] MEDS: LEVOTHYROXINE SODIUM 88 MCG TABLET GT SCH (08:46)
[2017-09-23] MEDS: FERROUS SULFATE UDC 300 MG/5 ML UDC GT SCH (08:47)
[2017-09-23] MEDS: ASCORBIC ACID 500 MG TABLET GT SCH (08:48)
[2017-09-23] MEDS: APIXABAN 2.5 MG TABLET GT SCH ×2 (08:48→17:37)
[2017-09-23] MEDS: PANTOPRAZOLE 40 MG VIAL IV SCH (08:48)
[2017-09-23] MEDS: MULTIVITAMINS,THERAGRAN 1 UDTAB TABLET GT SCH (08:48)
[2017-09-23] MEDS: HYDROGEL DRESSING 90 GM TUBE TP SCH ×2 (08:50→21:36)
[2017-09-23] MEDS: DAKINS QUARTER STRENGTH (0.125%) 480 ML BOTTLE TOP SCH (08:50)
[2017-09-23] MEDS ORDERED: IV NS 0.9% 500 ML IV ONE (12:30)
--- NOTE | 2017-09-23 13:30 | NUR ---
RN NOTE PT NOTED TO HAVE LOW BP 80/54, DR CHRISTINA NOTIFIED, BOLUS 500 ML ONCE ORDERED AND ADMINISTERED, BP AFTER BOLUS 95/56 MMHG. WILL FOLLOW UP WITH MD AND MONITOR PT CLOSELY
--- NOTE | 2017-09-23 19:07 | NUR ---
PT RECEIVED TRACH SHILEY 8 ON VENT WITH NOTED SETTINGS . PT TOLERATING VENT SETTINGS. SUCTIONED SMALL AMOUNT OF PALE YELLOW THICK SECRETIONS. NO RESP DISTRESS NOTED. VENT ALARMS SET AND AUDIBLE. AMBU BAG AT BEDSIDE. VENT PLUGGED INTO RED OUTLET. WILL CONTINUE TO MONITOR.
--- NOTE | 2017-09-23 20:00 | NUR ---
TELE 1 RN NOTE PT IN BED WITH EYES OPEN NON VERBAL, ON VENT/TRACH TOLERATING THE SETTINGS WELL, NO DISTRESS OR DISCOMFORT NOTED. NO S/S OF PAIN NOTED. ON TELE SR HR 74. SAEED PICC LINE INTACT AND PATENT TKO NS. F/C INTACT AND PATENT DRAINING YELLOWISH COLOR URINE. BILATERAL LOWER EXT WITH DVT PUMP ON. REPOSITION HIM FOR SKIN MANAGEMENT. SIDE RAILS UP X 3 AND CALL LIGHT WITHIN REACH. VSS. CONTINUE TO MONITOR HIM.
[2017-09-24] VITALS (7 sets, daily range): BP systolic 84–117; BP diastolic 45–66
[2017-09-24] MEDS: BLOOD SUGAR DIAGNOSTIC 1 EACH STRIP IN SCH ×4 (00:34→17:54)
[2017-09-24] MEDS: PIPERACILLIN /TAZOBACTAM 4.5 G in IV D5W 50 ML IV SCH ×4 (00:35→17:54)
[2017-09-24] MEDS: INSULIN REGULAR, HUMAN 100 UNIT/ML 3 ML VIAL SQ PRN (00:36)
[2017-09-24] MEDS: MIDODRINE HCL (5MG) 5 MG TABLET GT SCH ×3 (05:33→17:55)
--- NOTE | 2017-09-24 06:23 | NUR ---
TELE 1 RN NOTE PT IN BED ASLEEP, NO DISTRESS OR DISCOMFORT NOTED. ON VENT TOLERATING SETTINGS WELL. NO CHANGE IN CONDITION DURING THE NIGHT. GTF INFUSING WELL, 0 ML RESIDUAL NOTED. F/C INTACT AND PATENT DRAINING YELLOWISH COLOR URINE. REPOSITION HIM Q2H, KEPT HIM DRY AND CLEAN. ALL NEEDS ATTENDED.
[2017-09-24] MEDS: PROSOURCE / PROSTAT (PYXIS) 30 ML UDC GT SCH ×3 (08:27→17:55)
[2017-09-24] MEDS: FERROUS SULFATE UDC 300 MG/5 ML UDC GT SCH (08:27)
[2017-09-24] MEDS: LEVOTHYROXINE SODIUM 88 MCG TABLET GT SCH (08:27)
[2017-09-24] MEDS: MULTIVITAMINS,THERAGRAN 1 UDTAB TABLET GT SCH (08:27)
[2017-09-24] MEDS: PANTOPRAZOLE 40 MG VIAL IV SCH (08:27)
[2017-09-24] MEDS: ASCORBIC ACID 500 MG TABLET GT SCH (08:27)
[2017-09-24] MEDS: ACETAMINOPHEN 650 MG/20.3 ML UDC GT PRN (08:27)
[2017-09-24] MEDS: DAKINS QUARTER STRENGTH (0.125%) 480 ML BOTTLE TOP SCH (08:28)
[2017-09-24] MEDS: HYDROGEL DRESSING 90 GM TUBE TP SCH (08:28)
[2017-09-24] MEDS: APIXABAN 2.5 MG TABLET GT SCH ×2 (08:29→17:54)
[2017-09-24] MEDS: JEVITY 1.2 CAL 1,000 ML BOTTLE GT PRN (12:28)
[2017-09-24] MEDS ORDERED: SODI473S8 TOP (15:09)
[2017-09-24] MEDS ORDERED: Hydrogel Dressing TP (15:09)
[2017-09-24] MEDS ORDERED: ASCO500T9 GT (15:09)
[2017-09-24] MEDS ORDERED: ALLA266C2 TP (15:09)
[2017-09-24] MEDS ORDERED: LACT-209 GT (15:09)
[2017-09-24] MEDS ORDERED: PIPE4.5V3 IV (15:09)
--- NOTE | 2017-09-24 18:08 | NUR ---
RT END OF THE SHIFT REPORT: PT. 57 Y OLD MALE RECEIVED 0700 AM TRACH SHILEY # 8 ON VENT. PT IS AWAKE NO RESP DISTRESS. PT TOLERATING VENT SETTINGS. B/S BILATERALLY RALES. EQUAL CHEST RISE NOTED. SX'D FOR MOD AMT OF THICK YELLOWISH SECRETIONS. VENT ALARMS SET AND AUDIBLE. VENT PLUGGED INTO RED OUTLET AMBU BAG AT BEDSIDE. NO CHANGES NO DISTRESS NOTED T/O DAY WILL CONTINUE TO MONITOR. REPORT WILL BE PASS TO PM SHIFT. Addendum: 09/24/17 at 1812 by GRAEME MATTHEWS RT Amended: Links added.
== END 2017-09-24 19:25 | DRG 166 ==
LOC: ER 20:12 → TELE1 22:04
PROVIDERS: ADMIT Hospitalist; ATTEND Hospitalist
PROC: 5A1955Z Respiratory Ventilation, Greater than 96 Consecutive Hours (ICD-10-PCS; principal; 2017-09-16)
PROC: 0JBQ0ZZ Excision of Right Foot Subcutaneous Tissue and Fascia, Open Approach (ICD-10-PCS; 2017-09-18)
PROC: 0KBP0ZZ Excision of Left Hip Muscle, Open Approach (ICD-10-PCS; 2017-09-18)
PROC: 0KBN0ZZ Excision of Right Hip Muscle, Open Approach (ICD-10-PCS; 2017-09-18)
DX: J93.9 Pneumothorax, unspecified (principal); L89.814 Pressure ulcer of head, stage 4; E43 Unspecified severe protein-calorie malnutrition; G93.41 Metabolic encephalopathy; L89.154 Pressure ulcer of sacral region, stage 4; L89.214 Pressure ulcer of right hip, stage 4; L89.894 Pressure ulcer of other site, stage 4; R53.2 Functional quadriplegia; L89.224 Pressure ulcer of left hip, stage 4; J95.851 Ventilator associated pneumonia; J96.11 Chronic respiratory failure with hypoxia; Z99.11 Dependence on respirator [ventilator] status; E87.1 Hypo-osmolality and hyponatremia; Z93.0 Tracheostomy status; D63.8 Anemia in other chronic diseases classified elsewhere; E11.9 Type 2 diabetes mellitus without complications; Z93.1 Gastrostomy status; Z86.73 Personal history of transient ischemic attack (TIA), and cerebral infarction without residual deficits; I25.10 Atherosclerotic heart disease of native coronary artery without angina pectoris; Y84.8 Other medical procedures as the cause of abnormal reaction of the patient, or of later complication, without mention of misadventure at the time of the procedure; D50.9 Iron deficiency anemia, unspecified; I95.9 Hypotension, unspecified; G40.909 Epilepsy, unspecified, not intractable, without status epilepticus; Z95.1 Presence of aortocoronary bypass graft; R13.10 Dysphagia, unspecified; I10 Essential (primary) hypertension; K21.9 Gastro-esophageal reflux disease without esophagitis; J44.9 Chronic obstructive pulmonary disease, unspecified; B96.5 Pseudomonas (aeruginosa) (mallei) (pseudomallei) as the cause of diseases classified elsewhere; D72.829 Elevated white blood cell count, unspecified; S31.20XA Unspecified open wound of penis, initial encounter
CPT/HCPCS: 31720; 36415; 71045-TC; 80048-TC; 80061-TC; 80076-TC; 82945-TC; 82962-TC; 83540-TC; 83735-TC; 84100-TC; 84443-TC; 84484-TC; 85025-TC; 85730-TC; 86850-TC; 87040-TC; 87070-TC; 87081-TC; 87086-TC; 87186-TC; 94002-TC; 94003-TC; 94760-TC; 94762-TC; 99082-TC; A4606; A4623; A6248; A6253; A6402; A6403; C9113; J1815; J2543; J7030; J7040; J7050; J7060; Z7610

== ENCOUNTER 2017-12-30 21:19 | Inpatient (IN) | payer MEDICARE, MEDICAID ==
[~2017-12-30] VITALS: Ht 167.6 cm; Wt 62.6 kg
[~2017-12-30 21:19] MED LIST: ALBU2.5V38 IH; ALLA266C2 TP; APIX2.5T GT; ASCO500T9 GT; FERR220S6 GT; HYDR-552 GT; Hydrogel Dressing TP; IPRA0.2S49 IH; L. A1TAB10 GT; LACT-209 GT; LEVO88TA5 GT; METO10TA3 GT; MIDO10TA GT; MULT-213 GT; OMEP20TA5 GT; PIPE4.5V3 IV; PROT946L GT; SODI473S8 TOP; ZINC220T GT
--- NOTE | 2017-12-30 21:20 | NUR ---
PT BIB RA FROM [facility] FOR HYPOXIA AND FEVERS X2 DAYS. PER EMS, O2 SAT 70S AT FACILITY ON VENT AT PRIOR SETTINGS. RESP VERY LABORED DESPITE TRACH/VENT, RETRACTIONS, O2 SAT 94% ON PRESENTATION. NOTED TACHYCARDIC AND IRREGULAR ON MONITOR. SKIN HOT, MOIST, PALE. RECTAL TEMP 106.5F. LEGS CONTRACTED, ARMS FLACCID. UNRESPONSIVE TO PAIN.
--- NOTE | 2017-12-30 21:53 | NUR ---
NOTIFIED DR RAMIREZ THAT I WAS UNABLE TO OBTAIN IV ACCESS DESPITE MULTIPLE ATTEMPTS AND [employer] WEAPONS SERGEANT WAS UNABLE TO DRAW BLOOD BY VENIPUNCTURE. DR RAMIREZ STARTED A R NAJMA 18G WITH GOOD BLOOD RETURN AND NO SIGNS OF INFILTRATION. Addendum: 12/30/17 at 2154 by HFOX LABS DRAWN FROM EJ IV Addendum: 12/30/17 at 2241 by HFOX CORRECTION: Mayo YAO 18G
[2017-12-30 22:00] VITALS: BP 142/85
--- NOTE | 2017-12-30 22:00 | NUR ---
NOTIFIED DR MARISCAL OF TEMP 106.5F RECTAL. VERBAL ORDERS RECEIVED. ICE PACKS PLACED ON PT FOR RAPID COOLING
[2017-12-30] MEDS ORDERED: DILTIAZEM HCL 25 MG IV ONE ×2 (22:11→22:36)
[2017-12-30] MEDS ORDERED: ACETAMINOPHEN 650 MG/SUPP.RECT RC ONE ×2 (22:11→22:30)
[2017-12-30 22:15] LABS: CALCIUM, SERUM 7.9 mg/dL (8.5-10.1); CARBON DIOXIDE 24 mmol/L (21-32); CHLORIDE 104 mmol/L (98-107); CREATININE 1.4 mg/dL (0.6-1.3); GLUCOSE 104 mg/dL (74-106); POTASSIUM 4.7 mmol/L (3.5-5.1); SODIUM SERUM 141 mmol/L (136-145); UREA NITROGEN, BLOOD 65 mg/dL (7-18)
[2017-12-30 22:16] LABS: INR 1.4 (0.87-1.13)
[2017-12-30 22:21] LABS: ALANINE AMINOTRANSFERASE 40 U/L (12-78); ALBUMIN 2.1 g/dL (3.4-5.0); ALKALINE PHOSPHATASE 74 U/L (46-116); ASPARTATE AMINOTRANSFERASE 48 U/L (15-37); BILIRUBIN,DIRECT 0.1 mg/dL (0.0-0.2); BILIRUBIN,TOTAL 0.3 mg/dL (0.2-1.0); TOTAL PROTEIN, SERUM 7.8 g/dL (6.4-8.2)
[2017-12-30 22:23] LABS: TROPONIN I 0.543 ng/mL (0.00-0.056)
[2017-12-30 22:24] LABS: BASOPHILS % (AUTO) 0.1 % (0.0-2.0); HEMATOCRIT 24 % (39-51); HEMOGLOBIN 8.4 g/dL (13.5-17.5); LYMPHOCYTES # (AUTO) 0.9 /CMM (0.8-4.8); LYMPHOCYTES % (AUTO) 4.5 % (20.0-44.0); MEAN CORPUSCULAR HGB CONC 35 g/dl (31.0-36.0); MEAN CORPUSCULAR VOLUME 106 fL (80-96); MONOCYTES # (AUTO) 0.7 /CMM (0.1-1.30); MONOCYTES % (AUTO) 3.2 % (2.0-12.0); NEUTROPHILS # (AUTO) 18.9 /CMM (1.8-8.9); NEUTROPHILS % (AUTO) 92.2 % (43.0-81.0); PLATELET COUNT (AUTO) 259 /CMM (150-450); RDW COEFFICIENT OF VARIATION 19.2 (11.5-15.0); RED BLOOD CELL COUNT(AUTO) 2.27 MIL/uL (4.5-6.0); WHITE BLOOD COUNT (AUTO) 20.5 K/uL (4.3-11.0)
[2017-12-30] MEDS ORDERED: IV NS 0.9% 1,000 ML BAG IV ONE (22:30)
[2017-12-30] MEDS ORDERED: DILTIAZEM HCL IV 125 MG in IV NS 0.9% 100 ML IV PRN (22:30)
[2017-12-30] MEDS ORDERED: DILTIAZEM HCL 50 MG IV IV ONE (22:30)
--- NOTE | 2017-12-30 22:48 | NUR ---
NOTIFIED DR MARISCAL OF HYPOTENSION. IV BOLUSES RUNNING TO GRAVITY. CARDIZEM DRIP HELD AT THIS TIME
[2017-12-30 22:55] LABS: BAND % (MANUAL) 7 % (0.0-5.0); LYMPHOCYTES % (MANUAL) 2 % (16-48); MONOCYTES % (MANUAL) 2 % (0-11.0); NEUTROPHILS % (MANUAL) 89 (42-76)
[2017-12-30 22:59] LABS: APPEARANCE,URINE SL CLOUDY (CLEAR); BILIRUBIN,URINE NEGATIVE (NEGATIVE); BLOOD, URINE NEGATIVE Ery/uL (NEGATIVE); COLOR,URINE YELLOW (YELLOW); KETONES,URINE NEGATIVE (NEGATIVE); LEUKOCYTE ESTERASE ,URINE NEGATIVE (NEGATIVE); NITRITE, URINE NEGATIVE (NEGATIVE); PH,URINE 5.5 (5.0-8.0); PROTEIN,URINE 2+ mg/dl (NEGATIVE); UGLUCOSE NEGATIVE (NEGATIVE); UROBILINOGEN,URINE 0.2 EU/dL (0.2)
--- NOTE | 2017-12-30 23:11 | NUR ---
ICU 260
--- NOTE | 2017-12-30 23:15 | NUR ---
PT NOTED WITH L FINGERTIPS DUSKY AND COOL, L HAND AND FOREARM MOTTLED. DR MARISCAL NOTIFIED AND CAME TO BEDSIDE FOR EVALUATION Addendum: 12/31/17 at 0004 by HFOX PT PLACED IN REVERSE [place] POSITION
[2017-12-30 23:21] LABS: BACTERIA,URINE Moderate /HPF (None Seen); SQUAMOUS EPITHELIAL CELL,UR Rare /HPF (None Seen)
--- NOTE | 2017-12-30 23:29 | NUR ---
REPORT GIVEN TO VIKKI NUÑEZ FOR JEWELL
[2017-12-30] MEDS ORDERED: PIPERACILLIN /TAZOBACTAM 3.375 G in IV D5W 50 ML IV ONE (23:30)
[2017-12-30] MEDS ORDERED: HEPARIN INFUSION/D5W 500 ML IV ONE ×2 (23:30→23:31)
[2017-12-30] MEDS ORDERED: VANCOMYCIN 1 GM in IV D5W 250 ML IV ONE (23:30)
[2017-12-30] MEDS ORDERED: PIPERACILLIN /TAZOBACTAM 3.375 G VIAL IV ONE (23:31)
[2017-12-30] MEDS ORDERED: VANCOMYCIN 1 GM VIAL ONE (23:31)
--- NOTE | 2017-12-30 23:40 | NUR ---
R EJ 18G IV ACCESS STARTED BY DR MARISCAL. GAURANG, ICU FILTER TIP INSPECTOR AT BEDSIDE TO ASSIST WITH PT CARE
[2017-12-30] MEDS ORDERED: NOREPINEPHRINE 4 MG/4 ML AMPUL IV ONE (23:55)
[2017-12-31] VITALS (84 sets, daily range): BP systolic 51–124; BP diastolic 24–87
--- NOTE | 2017-12-31 00:04 | NUR ---
OK PER DR MARISCAL TO INITIATE LEVOPHED THRU PERIPHERAL IV
--- NOTE | 2017-12-31 00:08 | NUR ---
LEVOPHED INITIATED AT 30MCG/MIN PER MD
--- NOTE | 2017-12-31 00:15 | NUR ---
DISREGARD EKG CHARTED FOR 14; CLARIFIED WITH DR MARISCAL THAT NO REPEAT EKG WAS NEEDED
[2017-12-31] MEDS ORDERED: PROPOFOL 100 ML IV PRN (00:30)
[2017-12-31] MEDS ORDERED: MORPHINE SULFATE INJ 2 MG/ML DISP.SYRIN IV PRN (00:30)
[2017-12-31] MEDS ORDERED: HEPARIN INFUSION/D5W 500 ML IV PRN (00:30)
[2017-12-31] MEDS ORDERED: ACETAMINOPHEN 325 MG TABLET PO PRN (00:30)
[2017-12-31] MEDS ORDERED: NOREPINEPHRINE 8 MG in IV D5W 500 ML IV PRN ×3 (00:30)
[2017-12-31] MEDS ORDERED: IV NS 0.9% 1,000 ML BAG IV ONE (00:30)
[2017-12-31] MEDS ORDERED: ONDANSETRON HCL/PF 4 MG/2 ML VIAL IVP PRN (00:30)
--- NOTE | 2017-12-31 00:57 | NUR ---
PT TRANSPORTED TO ICU RM 260 IN CRITICAL CONDITION VIA ACLS PROTOCOL WITH GAURANG NUÑEZ
[2017-12-31] MEDS ORDERED: IPRATROPIUM NEB FS 0.5 MG/2.5 ML AMPUL.NEB IH PRN (01:00)
[2017-12-31] MEDS ORDERED: Z GUARD REMEDY 2 OZ OINT TP PRN (01:00)
[2017-12-31] MEDS ORDERED: JEVITY 1.2 CAL 1,000 ML BOTTLE GT PRN (01:00)
[2017-12-31] MEDS ORDERED: METOCLOPRAMIDE HCL 10 MG TABLET GT PRN (01:00)
[2017-12-31] MEDS: NOREPINEPHRINE 8 MG in IV D5W 500 ML IV PRN ×3 (02:08→07:17)
--- NOTE | 2017-12-31 03:28 | NUR ---
TAIL WORKER. ADMISSION PT BEING ADMITTED IN THE ICU, SEPSIS. TRACH TO VENT CONNECTED. PT IS OBTUNDED. PT IS CRITICAL. VERY UNSTABLE. LEVOPHED 40MCG.MIN, IVF NS 4L TOTAL GIVEN PER KAREN RILEY. HEPARIN DRIP STARTED FROM ER. MULTIPLE WOUND NOTED. PICTURE TAKEN. PLACED IN THE CHART.H[employer]CHOOL FOREIGN LANGUAGE TUTOR SHOWING NSR. WILL CONTINUE TO MONITOR VITALS.
[2017-12-31] MEDS ORDERED: DOPamine 400 MG in IV D5W 250 ML IV PRN ×2 (03:30→04:00)
[2017-12-31] MEDS ORDERED: VASOPRESSIN INJ 50 UNIT in IV D5W 497.5 ML IV PRN ×2 (03:30→04:30)
[2017-12-31] MEDS ORDERED: IV NS 0.9% 1,000 ML IV PRN (03:30)
[2017-12-31] MEDS ORDERED: NOREPINEPHRINE 4 MG/4 ML AMPUL IV ONE (03:42)
[2017-12-31] MEDS ORDERED: DOPamine 400MG/D5W 250ML RTU 250 ML IV ONE (03:47)
[2017-12-31] MEDS ORDERED: VASOPRESSIN INJ 20 UNIT/ML VIAL ONE (04:27)
[2017-12-31] MEDS ORDERED: PIPERACILLIN /TAZOBACTAM 3.375 G VIAL IV ONE (05:08)
--- NOTE | 2017-12-31 05:12 | NUR ---
DOUBLE NEEDLE STITCHER. PT BP 67/35. PAGED KAREN RILEY. ORDERED. DOPAMINE PER PROTOCOL STARTED. 30MINUTES LATER BP 70/40, HEART RATE WENT 113.KAREN RILEY MADE AWARE, VASO STARTED. DOPAMINE DCD.
[2017-12-31 05:32] LABS: ABG BASE EXCESS -9.3 mmol/L; ABG OXYGEN SATURATION 95.3 % (92.0-98.5); ABG PCO2 21.4 mmHg (35.0-45.0); ABG PO2 83.9 mmHg (75.0-100.0); AaDO2 176.7 mmHg; COHb 0.3 % (0.5-1.5); MetHb 0.5 % (0.0-1.5); O2Hb 94.5 % (94.0-97.0); SITE, ABG Right Brachial; VENT MODE, BG AC12 VT500 40% PEEP+5
[2017-12-31] MEDS: PIPERACILLIN /TAZOBACTAM 3.375 G in IV D5W 50 ML IV SCH ×3 (05:34→17:24)
[2017-12-31] MEDS: IV NS 0.9% 250 ML IV PRN (05:35)
[2017-12-31 05:45] LABS: THYROID STIMULATING HORMONE 4.745 uIU/mL (0.358-3.74)
--- NOTE | 2017-12-31 06:40 | NUR ---
RN NOTE. PT IS UNSTABLE. GT CLAMPED REMAINING SAME VENT SETTINGS. FC PATENT. PT IS NPO. IV RT AND LT EJ. LEVOPHED 40MCG/MIN,VASO 0.04 U/MIN, HEPARIN 930UNIT/H. PT OS OBTUNDED. WILL CONTINUE TO MONITOR VITALS.
[2017-12-31] MEDS ORDERED: MORPHINE SULFATE INJ 4 MG/ML DISP.SYRIN IV PRN (07:09)
[2017-12-31] MEDS ORDERED: FEE PK DOSING 1 MIN EA MC ONE (07:25)
[2017-12-31] MEDS ORDERED: IV NS 0.9% 1,000 ML BAG IV PRN (07:30)
[2017-12-31] MEDS: LEVOTHYROXINE SODIUM 88 MCG TABLET GT SCH (07:30)
--- NOTE | 2017-12-31 07:30 | NUR ---
RN INITIAL NOTES 0700 RECEIVED PT OBTUNDED, TRACH IN PLACE. ON VENT. NO RESPIRATORY DISTRESS NOTED. IV LINES IN PLACE. PT ON LEVO AT VASO DRIP, SBP ON CLOSE MONITORING. PT HAS MULTIPLE WOUNDS. DRESSING IN PLACE. FOR WOUND CONSULT. FC IN PLACE. YELLOW CLOUDY URINE NOTED. BLE ELEVATED. WILL CLOSELY MONITOR. 0730 SEEN AND EXAMINED BY DR CHRISTINA AND DR ROBLES. MD AWARE OF CURRENT LAB VALUES; WBC 16.6, HGB 7.7, HCT 24, PLATELET 210, BUN 64, CREA 1.5. PT ON IV ATB. LOW GRADE TEMP, 100. CULTURES PENDING. PT FOR PICC LINE INSERTION. PASQUALE (PHARMACIST) CALLED AND CLARIFIED PT'S PRESSORS ORDER, DR ROBLES NOTIFIED. PER , OK TO ADMINISTER LEVOPHED AND DOPAMINE INSTEAD OF LEVOPHED AND VASOPRESSIN. WILL CLOSELY MONITOR
[2017-12-31 07:38] LABS: CALCIUM, SERUM 6.7 mg/dL (8.5-10.1); CREATININE 1.5 mg/dL (0.6-1.3)
[2017-12-31 08:07] LABS: BASOPHILS % (AUTO) 0.1 % (0.0-2.0); EOSINOPHILS % (AUTO) 0.1 % (0.0-6.0); HEMATOCRIT 24 % (39-51); HEMOGLOBIN 7.7 g/dL (13.5-17.5); LYMPHOCYTES # (AUTO) 0.7 /CMM (0.8-4.8); LYMPHOCYTES % (AUTO) 4.2 % (20.0-44.0); MEAN CORPUSCULAR HGB CONC 32 g/dl (31.0-36.0); MEAN CORPUSCULAR VOLUME 108 fL (80-96); MONOCYTES # (AUTO) 1.1 /CMM (0.1-1.30); MONOCYTES % (AUTO) 6.4 % (2.0-12.0); NEUTROPHILS # (AUTO) 14.7 /CMM (1.8-8.9); NEUTROPHILS % (AUTO) 89.2 % (43.0-81.0); PLATELET COUNT (AUTO) 210 /CMM (150-450); RDW COEFFICIENT OF VARIATION 19.5 (11.5-15.0); WHITE BLOOD COUNT (AUTO) 16.5 K/uL (4.3-11.0)
[2017-12-31 08:19] LABS: MAGNESIUM 2.2 mg/dL (1.8-2.4); PHOSPHORUS 4.6 mg/dL (2.5-4.9); THYROID STIMULATING HORMONE 5.018 uIU/mL (0.358-3.74)
[2017-12-31] MEDS: FERROUS SULFATE UDC 300 MG/5 ML UDC GT SCH ×2 (08:30→08:53)
[2017-12-31] MEDS: PROSOURCE / PROSTAT (PYXIS) 30 ML UDC GT SCH ×3 (08:49→16:51)
[2017-12-31] MEDS: PANTOPRAZOLE 40 MG/PACK PACK GT SCH (08:49)
[2017-12-31] MEDS: ACIDOPHILUS/BULGARICUS 1 EACH TAB.CHEW GT SCH (08:49)
[2017-12-31] MEDS: ZINC SULFATE 220 MG CAPSULE GT SCH (08:50)
[2017-12-31] MEDS: MULTIVIT, IRON, MIN NO. 8, FA 1 TAB GT SCH (08:50)
[2017-12-31] MEDS: ASCORBIC ACID 500 MG TABLET GT SCH (08:50)
[2017-12-31] MEDS: IV NS 0.9% 1,000 ML IV SCH ×2 (08:53→11:35)
[2017-12-31] MEDS: HYDROCORTISONE SOD SUCCINATE 100 MG/2 ML VIAL IV SCH ×3 (08:56→16:50)
[2017-12-31] MEDS: PANTOPRAZOLE 40 MG VIAL IV SCH (08:56)
[2017-12-31] MEDS: DAKINS QUARTER STRENGTH (0.125%) 480 ML BOTTLE TOP SCH (08:56)
--- NOTE | 2017-12-31 09:00 | NUR ---
RN NOTES SEEN AND EXAMINED BY DR NIELSON. TRACH IN PLACE, ON VENT. NO RESPIRATORY DISTRESS NOTED. PT ON LEVO AND DOPAMINE DRIP, VS CLOSELY MONITORED. MD AWARE OF LAB VALUES AND ABG RESULT. WILL MONITOR
[2017-12-31 09:23] LABS: LYMPHOCYTES % (MANUAL) 3 % (16-48); MONOCYTES % (MANUAL) 3 % (0-11.0); NEUTROPHILS % (MANUAL) 94 (42-76)
[2017-12-31] MEDS: NOREPINEPHRINE 16 MG in IV D5W 500 ML IV PRN ×2 (10:15→16:51)
[2017-12-31] MEDS: FLUDROCORTISONE 0.1 MG TABLET GT SCH ×3 (11:24→23:16)
[2017-12-31] MEDS: VANCOMYCIN 500 MG in IV D5W 100 ML IV SCH ×2 (12:22→23:21)
[2017-12-31] MEDS ORDERED: ALBUTEROL FS 2.5 MG/0.5 ML VIAL.NEB NEB PRN (13:30)
[2017-12-31] MEDS: MIDODRINE HCL (5MG) 5 MG TABLET GT SCH ×2 (14:00→20:39)
[2017-12-31] MEDS: ACETAMINOPHEN 650 MG/20.3 ML UDC GT PRN ×2 (14:00→20:39)
--- NOTE | 2017-12-31 15:00 | NUR ---
RN NOTES SEEN AND EXAMINED BY OSVALDO TAPIA FOR WOUND CONSULT. ASSESSED MULTIPLE WOUNDS, TX ORDERED. WILL CONTINUE TO MONITOR. SEEN AND EXAMINED BY DR ARLET MD ASSESSED PT'S FEET. DTI NOTED ON BILATERAL FEET (LATERAL, MEDIAL AND 5TH TOES).WILL KEEP ELEVATED. WILL MONITOR
--- NOTE | 2017-12-31 18:00 | NUR ---
RT END OF THE SHIFT REPORT: PT. 57 Y OLD MALE REC. @ 0700 AM NON RESPONSIVE. TRACHE'D ARNOL # 8 ON [facility]. VENT WITH NOTED SETTINGS, ALARMS ARE SET AND FUNCTIONAL, B/S RHONCHI. TRIPLETT'X FOR MOD. AMT. OF SECRETIONS. THICK YELLOW TRACH CARE DONE. HME CHANGED EQUAL CHEST RISE NOTED. FLAQUITA. VENT SETTINGS WELL AND REMAIN ON SAME SETTINGS, NO CHANGES. VENT PLUGGED INTO RED OUT LET. CONTINUE FOR CARE AND MONITOR. AMBU BAG REMAIN AT THE BEDSIDE,. REPORT WILL PASS TO PM SHIFT. Addendum: 12/31/17 at 1802 by GRAEME MATTHEWS RT Amended: Links added.
--- NOTE | 2017-12-31 18:57 | NUR ---
RN CLOSING NOTES NO RESPIRATORY DISTRESS NOTED. TRACH IN PLACE, TOLERATING VENT WELL. [place] PICC IN PLACE. REMAINS ON LEVOPHED, TITRATED ACCORDINGLY. FC IN PLACE. TX PROVIDED ORDERED. KEPT CLEAN AND DRY. REPOSITIONED Q2. BLE ELEVATED. WILL ENDORSE FOR CONTINUITY OF CARE.
--- NOTE | 2017-12-31 19:00 | NUR ---
RN NOTE RECEIVED PT IN NO ACUTE DISTRESS IN BED. PT IS OBTUNDED BUT OPENS EYES. PT IS ON MECHANICAL VENT VIA TRACH. TRACH SITE IS CLEAN DRY AND INTACT. PT HAS GTUBE THAT IS CLEAN DRY INTACT AND PATENT WITH FREE WATER FLUSH. PT HAS F/C THAT IS CLEAN DRY INTACT AND PATENT WITH YELLOW URINE DRAINING. PT HAS RIGHT UPPER ARM TLC PICC LINE THAT IS CLEAN DRY INTACT AND PATENT WITH NS @ TKO AND LEVO @ 32 MCG. BED IN LOW LOCK POSITION WITH RIALS UP X 2. CALL LIGHT WITHIN REACH AND ALL SAFETY MEASURES ENSURED AND CARRIED OUT. WILL CONTINUE TO MONITOR.
--- NOTE | 2017-12-31 19:20 | NUR ---
pt received on vent via trach with charted settings. airway patent. trach secure via trach tie. pt . ambu bag at bedside. alarms set and audible, disconnect alarms checked plugged into red outlet suctioned a moderate amount of thick yellow secretions. pt receiving no breathing tx at this time. pt hob at 30 degrees. suctioned oral secretion from pts mouth Addendum: 12/31/17 at 1929 by YA MORENO RT Amended: Links added.
[2018-01-01] VITALS (87 sets, daily range): BP systolic 36–147; BP diastolic 13–93
[2018-01-01] MEDS: PIPERACILLIN /TAZOBACTAM 3.375 G in IV D5W 50 ML IV SCH ×5 (00:42→23:18)
[2018-01-01] MEDS: NOREPINEPHRINE 16 MG in IV D5W 500 ML IV PRN ×2 (00:43→15:46)
--- NOTE | 2018-01-01 04:00 | NUR ---
RN NOTE PT GIVEN BED BATH, WOUND CARE AND TOLERATED WELL. WILL CONTINUE TO MONITOR.
[2018-01-01 05:09] LABS: ALBUMIN 1.9 g/dL (3.4-5.0); BILIRUBIN,TOTAL 0.5 mg/dL (0.2-1.0); CALCIUM, SERUM 7.1 mg/dL (8.5-10.1); CREATININE 1.6 mg/dL (0.6-1.3); MAGNESIUM 2.4 mg/dL (1.8-2.4); PHOSPHORUS 5.3 mg/dL (2.5-4.9); POTASSIUM 3.4 mmol/L (3.5-5.1); TOTAL PROTEIN, SERUM 6.9 g/dL (6.4-8.2)
[2018-01-01 05:14] LABS: TROPONIN I 0.717 ng/mL (0.00-0.056)
[2018-01-01] MEDS: FLUDROCORTISONE 0.1 MG TABLET GT SCH ×4 (05:19→23:18)
[2018-01-01] MEDS: MIDODRINE HCL (5MG) 5 MG TABLET GT SCH ×3 (05:19→20:16)
[2018-01-01 05:24] LABS: INR 1.42 (0.87-1.13)
[2018-01-01 06:21] LABS: HEMATOCRIT 24 % (39-51); HEMOGLOBIN 7.7 g/dL (13.5-17.5); MEAN CORPUSCULAR HGB CONC 32 g/dl (31.0-36.0); MEAN CORPUSCULAR VOLUME 107 fL (80-96); RED BLOOD CELL COUNT(AUTO) 2.22 MIL/uL (4.5-6.0)
[2018-01-01 06:22] LABS: BASOPHILS % (AUTO) 0.2 % (0.0-2.0); LYMPHOCYTES % (AUTO) 1.2 % (20.0-44.0); NEUTROPHILS % (AUTO) 96.6 % (43.0-81.0); PLATELET COUNT (AUTO) 129 /CMM (150-450)
--- NOTE | 2018-01-01 07:50 | NUR ---
RT PT RECEIVED WITH A [employer] 8 TRACH ON THE VENT WITH NOTED SETTINGS. PT IS AWAKE AND SEMI-ALERT. VENT ALARMS ARE SET AND AUDIBLE WITH BVM BY BEDSIDE. RESIDENTIAL RECYCLE DRIVER CUFF PRESSURE NOTED. VENT IS PLUGGED INTO RED OUTLET. PT SX'D MODERATE THICK PALE YELLOW SECRETIONS. NO RESPIRATORY DISTRESS NOTED AT THIS TIME, WILL CONTINUE TO MONITOR. Addendum: 01/01/18 at 1021 by DOROTHEA CASTELLON RT Amended: Links added.
[2018-01-01] MEDS ORDERED: IV NS 0.9% 1,000 ML BAG IV PRN (08:30)
[2018-01-01] MEDS: HYDROCORTISONE SOD SUCCINATE 100 MG/2 ML VIAL IV SCH ×3 (08:34→17:09)
[2018-01-01] MEDS: ZINC SULFATE 220 MG CAPSULE GT SCH (08:34)
[2018-01-01] MEDS: PANTOPRAZOLE 40 MG/PACK PACK GT SCH (08:34)
[2018-01-01] MEDS: ACIDOPHILUS/BULGARICUS 1 EACH TAB.CHEW GT SCH (08:34)
[2018-01-01] MEDS: PROSOURCE / PROSTAT (PYXIS) 30 ML UDC GT SCH ×3 (08:34→17:11)
[2018-01-01] MEDS: LEVOTHYROXINE SODIUM 88 MCG TABLET GT SCH (08:34)
[2018-01-01] MEDS: ASCORBIC ACID 500 MG TABLET GT SCH (08:34)
[2018-01-01] MEDS: MULTIVIT, IRON, MIN NO. 8, FA 1 TAB GT SCH (08:34)
[2018-01-01] MEDS: PANTOPRAZOLE 40 MG VIAL IV SCH (08:34)
[2018-01-01] MEDS: FERROUS SULFATE UDC 300 MG/5 ML UDC GT SCH (08:34)
[2018-01-01] MEDS: DAKINS QUARTER STRENGTH (0.125%) 480 ML BOTTLE TOP SCH (08:37)
[2018-01-01] MEDS: IV NS 0.9% 1,000 ML IV PRN ×2 (08:37→17:55)
[2018-01-01 08:44] LABS: ABG BASE EXCESS -6.1 mmol/L; ABG OXYGEN SATURATION 95.7 % (92.0-98.5); ABG PCO2 26.6 mmHg (35.0-45.0); ABG PH 7.432 (7.350-7.450); ABG PO2 91.3 mmHg (75.0-100.0); AaDO2 163.3 mmHg; COHb 0.2 % (0.5-1.5); MetHb 1.5 % (0.0-1.5); O2Hb 94.1 % (94.0-97.0); PEEP,BG 5 cm H2O; SITE, ABG Left Radial; VT, ABG 500 mL
--- NOTE | 2018-01-01 09:00 | NUR ---
RN INITIAL NOTES 0715 RECEIVED PT TRACH IN PLACE, ON VENT. NO RESPIRATORY DISTRESS NOTED. NO SIGNS OF PAIN NOTED. DENNY PICC IN PLACE. ON LEVO AT 10MCG/MIN. WILL TITRATE ACCORDINGLY. FC IN PLACE. REPOSITIONED. CLEAN AND DRY. BLE ELEVATED. WILL MONITOR. 0800 SEEN AND EXAMINED BY DR CHRISTINA AND DR ROBLES. AWARE OF LAB VALUES: WBC 21, HGB 7.7, HCT 24, PLATELET 129. POTASSIUM 3.4, REPLACEMENT ORDERED. ALSO AWARE OF CXR RESULT. WILL CONTINUU TO MONITOR. 0900 SEEN AND EXAMINED BY DR REYNOLDS. AWARE OF CURRENT LAB VALUES, ABG AND CXR RESULT. PT REMAINS ON LEVO. WILL MONITOR
[2018-01-01 09:16] LABS: BAND % (MANUAL) 1 % (0.0-5.0); LYMPHOCYTES % (MANUAL) 1 % (16-48); MONOCYTES % (MANUAL) 3 % (0-11.0); NEUTROPHILS % (MANUAL) 95 (42-76)
[2018-01-01] MEDS ORDERED: POTASSIUM CHLORIDE 20 MEQ POWDER PACKET GT SCH (10:00)
[2018-01-01] MEDS: VANCOMYCIN 500 MG in IV D5W 100 ML IV SCH (17:54)
--- NOTE | 2018-01-01 19:00 | NUR ---
RN NOTE RECEIVED PT IN NO ACUTE DISTRESS IN BED. PT IS OBTUNDED BUT OPENS EYES. PT IS ON MECHANICAL VENT VIA TRACH. TRACH SITE IS CLEAN DRY AND INTACT. PT HAS GTUBE THAT IS CLEAN DRY INTACT AND PATENT WITH FREE WATER FLUSH. PT HAS F/C THAT IS CLEAN DRY INTACT AND PATENT WITH YELLOW URINE DRAINING. PT HAS RIGHT UPPER ARM TLC PICC LINE THAT IS CLEAN DRY INTACT AND PATENT WITH NS @ 100 ML/HR AND LEVO @ 4 MCG. BED IN LOW LOCK POSITION WITH RIALS UP X 2. CALL LIGHT WITHIN REACH AND ALL SAFETY MEASURES ENSURED AND CARRIED OUT. WILL CONTINUE TO MONITOR.
--- NOTE | 2018-01-01 21:34 | NUR ---
PT RECEIVED TRACHED [facility] 8 ON VENT. NO RESP DISTRESS NOTED. PT TOLERATING VENT SETTINGS. SX'D FOR MOD AMT OF THICK JOSEPH SECRETIONS. VENT ALARMS SET AND AUDIBLE. AMBU BAG AT BEDSIDE. WILL CONTINUE TO MONITOR. Addendum: 01/01/18 at 2136 by AMANDEEP SIERRA RT Amended: Links added.
[2018-01-02] VITALS (87 sets, daily range): BP systolic 87–137; BP diastolic 41–94
[2018-01-02 05:03] LABS: LYMPHOCYTES # (AUTO) 0.2 /CMM (0.8-4.8); LYMPHOCYTES % (AUTO) 1.2 % (20.0-44.0); MEAN CORPUSCULAR HGB CONC 32 g/dl (31.0-36.0); MEAN CORPUSCULAR VOLUME 107 fL (80-96); MONOCYTES # (AUTO) 0.3 /CMM (0.1-1.30); MONOCYTES % (AUTO) 1.6 % (2.0-12.0); NEUTROPHILS # (AUTO) 18.4 /CMM (1.8-8.9); NEUTROPHILS % (AUTO) 97.2 % (43.0-81.0); PLATELET COUNT (AUTO) 81 /CMM (150-450); RDW COEFFICIENT OF VARIATION 19.9 (11.5-15.0); WHITE BLOOD COUNT (AUTO) 18.9 K/uL (4.3-11.0)
[2018-01-02] MEDS: FLUDROCORTISONE 0.1 MG TABLET GT SCH (05:05)
[2018-01-02] MEDS: PIPERACILLIN /TAZOBACTAM 3.375 G in IV D5W 50 ML IV SCH ×3 (05:06→17:52)
[2018-01-02] MEDS: MIDODRINE HCL (5MG) 5 MG TABLET GT SCH ×3 (05:06→21:30)
[2018-01-02 05:19] LABS: HEMOGLOBIN 6.5 g/dL (13.5-17.5)
[2018-01-02 05:20] LABS: HEMATOCRIT 20 % (39-51)
[2018-01-02 05:46] LABS: HEMOGLOBIN 7.3 g/dL (13.5-17.5)
[2018-01-02 05:48] LABS: CALCIUM, SERUM 7.9 mg/dL (8.5-10.1); CREATININE 1.6 mg/dL (0.6-1.3); MAGNESIUM 2.5 mg/dL (1.8-2.4); PHOSPHORUS 5.3 mg/dL (2.5-4.9); POTASSIUM 2.8 mmol/L (3.5-5.1)
--- NOTE | 2018-01-02 06:49 | NUR ---
RN NOTE PT REMAINS IN NO ACUTE DISTRESS IN BED. PT DID NOT HAVE ANY SIGNIFICANT CHANGE IN CONDITION DURING SHIFT. PT TOLERATED VENT SETTING WELL. PT CONTINUES ON LEVO @ 4 MCG WITH VITALS WNL. ALL NEEDS MET, ALL ORDERS CARRIED OUT. WILL ENDORSE CARE TO AM RN FOR CONTINUITY OF CARE.
[2018-01-02] MEDS ORDERED: POTASSIUM CHLORIDE 20 MEQ POWDER PACKET NG SCH (08:30)
[2018-01-02] MEDS: ASCORBIC ACID 500 MG TABLET GT SCH (08:41)
[2018-01-02] MEDS: POTASSIUM CL. PREMIX PERIPHER. 50 ML IV SCH ×4 (08:41→11:59)
[2018-01-02] MEDS: MULTIVIT, IRON, MIN NO. 8, FA 1 TAB GT SCH (08:41)
[2018-01-02] MEDS: HYDROCORTISONE SOD SUCCINATE 100 MG/2 ML VIAL IV SCH ×3 (08:41→16:40)
[2018-01-02] MEDS: IV NS 0.9% 1,000 ML IV PRN ×2 (08:41→18:18)
[2018-01-02] MEDS: PROSOURCE / PROSTAT (PYXIS) 30 ML UDC GT SCH ×3 (08:41→17:52)
[2018-01-02] MEDS: PANTOPRAZOLE 40 MG VIAL IV SCH (08:41)
[2018-01-02] MEDS: ZINC SULFATE 220 MG CAPSULE GT SCH (08:41)
[2018-01-02] MEDS: FERROUS SULFATE UDC 300 MG/5 ML UDC GT SCH (08:41)
[2018-01-02] MEDS: ACIDOPHILUS/BULGARICUS 1 EACH TAB.CHEW GT SCH (08:42)
[2018-01-02] MEDS: LEVOTHYROXINE SODIUM 88 MCG TABLET GT SCH (08:42)
[2018-01-02] MEDS: PANTOPRAZOLE 40 MG/PACK PACK GT SCH (08:50)
[2018-01-02] MEDS: DAKINS QUARTER STRENGTH (0.125%) 480 ML BOTTLE TOP SCH (08:51)
--- NOTE | 2018-01-02 08:55 | NUR ---
ROTARY PUMP OPERATOR- VERIFIED WITH DR. ROBLES ON POTASSIUM ORDERS. INFORMED MD POTASSIUM WAS REPEATED THIS AM AND CURRENT RESULT IS 3.2. POTASSIUM OF 2.8 DRAWN EARLIER WAS AN ERROR. PER MD, D/C CURRENT ORDER OF ADDITIONAL POTASSIUM 20 MEQ POWDER, OK WITH KCL 40 MEQ IV ORDERED EARLIER BY DR. CHRISTINA. WILL CONTINUE TO MONITOR.
[2018-01-02] MEDS: VANCOMYCIN 500 MG in IV D5W 100 ML IV SCH (11:59)
--- NOTE | 2018-01-02 13:00 | NUR ---
- 1300: DR. COOMBS & TARUN SALVAGER AT BEDSIDE. VERBAL ORDERS GIVEN TO OBTAIN CONSENT FOR LEFT/RIGHT HIP AND SACRAL WOUND DEBRIDEMENTS. - 1425: OBTAINED CONSENT FOR LEFT HIP, RIGHT HIP AND SACRAL WOUND DEBRIDEMENTS FROM PT'S MD, DR. VINITA MULLER. PLACED IN PT'S CHART. WILL CONTINUE TO MONITOR.
--- NOTE | 2018-01-02 15:00 | NUR ---
ROUNDHOUSE FIRER/FIREMAN- LEFT HIP, RIGHT HIP AND SACRAL DEBRIDEMENT DONE AT BEDSIDE BY DR. COOMBS. PT TOLERATED WELL. WILL CONTINUE TO MONITOR.
[2018-01-02] MEDS: NOREPINEPHRINE 16 MG in IV D5W 500 ML IV PRN (16:48)
--- NOTE | 2018-01-02 19:19 | NUR ---
PT RECEIVED WITH A [facility] 8 TRACH ON THE VENT WITH NOTED SETTINGS. VENT ALARMS ARE SET AND AUDIBLE WITH AMBU BAG @ BEDSIDE. PIPELINE INTEGRITY ENGINEER CUFF PRESSURE NOTED. VENT IS PLUGGED INTO RED OUTLET. PT SX'D MODERATE THICK PALE YELLOW SECRETIONS. NO RESPIRATORY DISTRESS NOTED AT THIS TIME, WILL CONTINUE TO MONITOR.
[2018-01-03] VITALS (108 sets, daily range): BP systolic 78–142; BP diastolic 52–95
[2018-01-03] MEDS: PIPERACILLIN /TAZOBACTAM 3.375 G in IV D5W 50 ML IV SCH ×3 (00:05→11:57)
[2018-01-03 04:49] LABS: CALCIUM, SERUM 7.8 mg/dL (8.5-10.1); CREATININE 1.7 mg/dL (0.6-1.3); MAGNESIUM 2.1 mg/dL (1.8-2.4); PHOSPHORUS 4.4 mg/dL (2.5-4.9)
[2018-01-03 04:54] LABS: POTASSIUM 2.5 mmol/L (3.5-5.1)
[2018-01-03] MEDS: MIDODRINE HCL (5MG) 5 MG TABLET GT SCH ×3 (05:21→20:23)
[2018-01-03 05:37] LABS: HEMATOCRIT 33 % (39-51); LYMPHOCYTES # (AUTO) 0.1 /CMM (0.8-4.8); LYMPHOCYTES % (AUTO) 0.4 % (20.0-44.0); MEAN CORPUSCULAR HGB CONC 20 g/dl (31.0-36.0); MEAN CORPUSCULAR VOLUME 112 fL (80-96); MONOCYTES # (AUTO) 0.4 /CMM (0.1-1.30); NEUTROPHILS # (AUTO) 19.9 /CMM (1.8-8.9); NEUTROPHILS % (AUTO) 97.6 % (43.0-81.0); PLATELET COUNT (AUTO) 113 /CMM (150-450); RDW COEFFICIENT OF VARIATION 19.8 (11.5-15.0); RED BLOOD CELL COUNT(AUTO) 2.97 MIL/uL (4.5-6.0); WHITE BLOOD COUNT (AUTO) 20.4 K/uL (4.3-11.0)
[2018-01-03 05:48] LABS: HEMOGLOBIN 6.7 g/dL (13.5-17.5)
[2018-01-03] MEDS: JEVITY 1.2 CAL 1,000 ML BOTTLE GT PRN (05:59)
[2018-01-03] MEDS: VANCOMYCIN 500 MG in IV D5W 100 ML IV SCH ×2 (05:59→23:07)
[2018-01-03 06:19] LABS: BAND % (MANUAL) 2 % (0.0-5.0); MONOCYTES % (MANUAL) 1 % (0-11.0); NEUTROPHILS % (MANUAL) 97 (42-76)
[2018-01-03] MEDS: LEVOTHYROXINE SODIUM 88 MCG TABLET GT SCH (08:30)
[2018-01-03] MEDS: MULTIVIT, IRON, MIN NO. 8, FA 1 TAB GT SCH (08:32)
[2018-01-03] MEDS: ACIDOPHILUS/BULGARICUS 1 EACH TAB.CHEW GT SCH (08:32)
[2018-01-03] MEDS: HYDROCORTISONE SOD SUCCINATE 100 MG/2 ML VIAL IV SCH ×3 (08:32→17:05)
[2018-01-03] MEDS: ZINC SULFATE 220 MG CAPSULE GT SCH (08:32)
[2018-01-03] MEDS: PANTOPRAZOLE 40 MG VIAL IV SCH (08:32)
[2018-01-03] MEDS: ASCORBIC ACID 500 MG TABLET GT SCH (08:32)
[2018-01-03] MEDS: DAKINS QUARTER STRENGTH (0.125%) 480 ML BOTTLE TOP SCH (08:33)
[2018-01-03] MEDS: POTASSIUM CL. PREMIX PERIPHER. 50 ML IV SCH ×7 (08:41→17:02)
[2018-01-03] MEDS: FERROUS SULFATE UDC 300 MG/5 ML UDC GT SCH (08:41)
[2018-01-03 08:45] LABS: LYMPHOCYTES % (MANUAL) 0 % (16-48)
[2018-01-03] MEDS: PANTOPRAZOLE 40 MG/PACK PACK GT SCH (08:52)
[2018-01-03] MEDS: PROSOURCE / PROSTAT (PYXIS) 30 ML UDC GT SCH ×3 (08:53→17:03)
--- NOTE | 2018-01-03 09:13 | NUR ---
DETECTIVE SERGEANT DF PT BP OF 106/56 LEVEOPHED TITRATED OFF WILL MONITOR FOR EFFECT. VSS. NAD NOTED. PT OBTUNDED, BUE/BLE FLACCID, DOES NOT FOLLOW COMMANDS. TRACH TO VENT TOLERATING CURRENT AC VENT SETTINGS. PT CRITICAL LABS REVIEWED WITH ORDERS. HGB 6.7 ORDERS TO TRANSFUSE. K OF 2.5 WILL RECEIVE 40 MEQ KCL. Addendum: 01/03/18 at 1117 by KAYLA SIU RN PT WILL RECEIVE 80MEQ KCL, AND 1 UPRBC
[2018-01-03] MEDS: COLISTIMETHATE SODIUM 150 MG VIAL NEB SCH ×2 (16:30→23:13)
--- NOTE | 2018-01-03 16:57 | NUR ---
SBP BP OF 100 PER NEPHROLOGY MD TITRATE OFF LEVEOPHED PT WAS ON 1 MCG PRIOR TO TITRATE OFF WILL MONITOR FOR EFFECT. @1645 SBP OF 78/52 WITH BRADYCARDIA @ 50 BPM. PT RESPONDS TO STIMULI WITHDRAWS ONLY, HEART RATE INCREASED TO NSR RATE OF 68 BPM.
[2018-01-03] MEDS: VANCOMYCIN HCL 125 MG/2.5 ML ORAL.SUSP PO SCH (17:53)
--- NOTE | 2018-01-03 19:30 | NUR ---
RN NOTE RECEIVED PT W/DX SEPSIS. PT IS OBTUNDED BUT OPENS EYES. PT IS ON MECHANICAL VENT VIA TRACH. TRACH SITE IS C/D/I. PT HAS GTUBE WITH TUBE FEEDING NO RESIDUAL NOTED. [place] CATHETER WITH CLOUDY URINE OUTPUT NOTED. PT HAS RIGHT UPPER ARM PICC WITH NS @ 100 ML/HR AND LEVO @ 2 MCG.
--- NOTE | 2018-01-03 20:15 | NUR ---
PT REC'D TRACHED VIA [facility] 8, ON [facility] VENT ON AC MODE. NO RESP DISTRESS OR SOB NOTED. SX'D FOR THICK MOD AMT OF YELLOW SECRETIONS. TRACH PATENT AND SECURED. PT STABLE AT THIS TIME. ALARMS ARE SET AND AUDIBLE. VENT PLUGGED INTO RED OUT. AMBU BAG BEDSIDE. WILL CONTINUE TO MONITOR. Addendum: 01/04/18 at 0531 by CHAO HERNANDEZ RT Amended: Links added.
[2018-01-03] MEDS: NOREPINEPHRINE 16 MG in IV D5W 500 ML IV PRN (20:19)
[2018-01-03] MEDS: IV NS 0.9% 1,000 ML IV PRN (20:19)
[2018-01-03] MEDS: IV NS 0.9% 250 ML IV PRN (20:20)
[2018-01-03] MEDS: CEFEPIME 1 GM in IV D5W 50 ML IV SCH (20:20)
[2018-01-03] MEDS: METRONIDAZOLE 500 MG TABLET PO SCH (20:22)
[2018-01-04] VITALS (69 sets, daily range): BP systolic 88–138; BP diastolic 57–85
[2018-01-04] MEDS: VANCOMYCIN HCL 125 MG/2.5 ML ORAL.SUSP PO SCH ×5 (00:10→23:57)
[2018-01-04] MEDS: IV NS 0.9% 1,000 ML IV PRN ×3 (00:11→18:07)
[2018-01-04 04:46] LABS: CALCIUM, SERUM 8.2 mg/dL (8.5-10.1); CREATININE 1.5 mg/dL (0.6-1.3); PHOSPHORUS 3.7 mg/dL (2.5-4.9)
[2018-01-04 04:48] LABS: POTASSIUM 2.8 mmol/L (3.5-5.1)
[2018-01-04] MEDS: MIDODRINE HCL (5MG) 5 MG TABLET GT SCH ×3 (05:43→20:43)
[2018-01-04] MEDS: METRONIDAZOLE 500 MG TABLET PO SCH ×3 (05:43→20:44)
--- NOTE | 2018-01-04 07:00 | NUR ---
TRIM SAWYER LEVOPHED TITRATED OFF. CONTINUE TO MONITOR.
[2018-01-04] MEDS: PROSOURCE / PROSTAT (PYXIS) 30 ML UDC GT SCH ×3 (08:23→17:05)
[2018-01-04] MEDS: FERROUS SULFATE UDC 300 MG/5 ML UDC GT SCH (08:23)
[2018-01-04] MEDS: ZINC SULFATE 220 MG CAPSULE GT SCH (08:23)
[2018-01-04] MEDS: PANTOPRAZOLE 40 MG/PACK PACK GT SCH (08:23)
[2018-01-04] MEDS: POTASSIUM CHLORIDE 20 MEQ POWDER PACKET GT SCH ×5 (08:23→12:27)
[2018-01-04] MEDS: MULTIVIT, IRON, MIN NO. 8, FA 1 TAB GT SCH (08:23)
[2018-01-04] MEDS: LEVOTHYROXINE SODIUM 88 MCG TABLET GT SCH (08:24)
[2018-01-04] MEDS: ASCORBIC ACID 500 MG TABLET GT SCH (08:24)
[2018-01-04] MEDS: ACIDOPHILUS/BULGARICUS 1 EACH TAB.CHEW GT SCH (08:24)
[2018-01-04] MEDS: HYDROCORTISONE SOD SUCCINATE 100 MG/2 ML VIAL IV SCH ×2 (08:24→17:05)
[2018-01-04] MEDS: DAKINS QUARTER STRENGTH (0.125%) 480 ML BOTTLE TOP SCH (08:25)
[2018-01-04] MEDS: JEVITY 1.2 CAL 1,000 ML BOTTLE GT PRN (08:57)
[2018-01-04] MEDS: COLISTIMETHATE SODIUM 150 MG VIAL NEB SCH ×2 (09:00→21:25)
[2018-01-04 09:11] LABS: HEMATOCRIT 25 % (39-51); HEMOGLOBIN 7.8 g/dL (13.5-17.5); LYMPHOCYTES # (AUTO) 0.2 /CMM (0.8-4.8); LYMPHOCYTES % (AUTO) 0.8 % (20.0-44.0); MEAN CORPUSCULAR HGB CONC 32 g/dl (31.0-36.0); MEAN CORPUSCULAR VOLUME 106 fL (80-96); MONOCYTES # (AUTO) 0.4 /CMM (0.1-1.30); NEUTROPHILS # (AUTO) 20.5 /CMM (1.8-8.9); NEUTROPHILS % (AUTO) 97.2 % (43.0-81.0); PLATELET COUNT (AUTO) 64 /CMM (150-450); RDW COEFFICIENT OF VARIATION 21.7 (11.5-15.0); RED BLOOD CELL COUNT(AUTO) 2.33 MIL/uL (4.5-6.0); WHITE BLOOD COUNT (AUTO) 21.1 K/uL (4.3-11.0)
--- NOTE | 2018-01-04 12:00 | NUR ---
FOOD SAMPLER- DR. SAENZ AT BEDSIDE. INFORMED MD PT'S CURRENT RESIDUALS= 150 ML. OK TO HOLD TUBE FEEDING AND MD TO ORDER REGLAN. ORDERS TO BE PLACED BY MD. FEEDINGS HELD. WILL CONTINUE TO MONITOR.
[2018-01-04 12:04] LABS: MONOCYTES % (MANUAL) 2 % (0-11.0); NEUTROPHILS % (MANUAL) 98 (42-76)
[2018-01-04] MEDS: METOCLOPRAMIDE HCL 10 MG/2 ML VIAL IV SCH ×2 (13:03→20:43)
[2018-01-04 13:25] LABS: LYMPHOCYTES % (MANUAL) 0 % (16-48)
--- NOTE | 2018-01-04 19:33 | NUR ---
METAL EXTRUSION SUPERVISOR. INITIAL ASSESSMENT. RECEIVED THE PT REST ON THE BED. TRACH TO VENT CONNECTED. SHILEY #8,AC 12,TV 500,FIO2 30%,PEEP 5. SAT 98%. NO ACUTE DISTRESS NOTED. SPOOL WORKER SHOWING SUNDAR CARDIA. RATE IS 55. FC PATENT. HOB ELEVATED. GT INTACT. IV RT UPPER ARM PICC LINE IVF NS 100ML/H. WILL CONTINUE TO MONITOR VITALS.
[2018-01-04] MEDS: CEFEPIME 1 GM in IV D5W 50 ML IV SCH (20:41)
[2018-01-04] MEDS: VANCOMYCIN 500 MG in IV D5W 100 ML IV SCH (23:57)
[2018-01-05] VITALS (23 sets, daily range): BP systolic 86–122; BP diastolic 55–77
--- NOTE | 2018-01-05 03:27 | NUR ---
CLAY DRY PRESS HELPER. AM CARE, ORAL CARE, BED BATH GIVEN. LINEN CHANGED. REMAINING SAME VENT SETTING TOLERATED WELL. SAT 96%, NO ACUTE DISTRESS NOTED. INSOLE BOTTOM FILLER SHOWING NSR, IV RT UPPER ARM PICC LINE IVF NS 100ML/H, GT INTACT, FC PATENT. URINE DRAINING. HOB ELEVATED. WOUND DRESSING DONE. TURN AND REPOSITION Q2H WILL CONTINUE TO MONITOR VITALS.
[2018-01-05] MEDS: METOCLOPRAMIDE HCL 10 MG/2 ML VIAL IV SCH ×3 (03:43→20:28)
[2018-01-05] MEDS: IV NS 0.9% 1,000 ML IV PRN ×3 (03:43→23:59)
[2018-01-05] MEDS: JEVITY 1.2 CAL 1,000 ML BOTTLE GT PRN (03:47)
[2018-01-05 04:52] LABS: CALCIUM, SERUM 8.1 mg/dL (8.5-10.1); CREATININE 1.4 mg/dL (0.6-1.3); POTASSIUM 3.1 mmol/L (3.5-5.1)
[2018-01-05] MEDS: MIDODRINE HCL (5MG) 5 MG TABLET GT SCH ×3 (05:21→20:29)
[2018-01-05] MEDS: VANCOMYCIN HCL 125 MG/2.5 ML ORAL.SUSP PO SCH ×4 (05:21→23:52)
[2018-01-05] MEDS: METRONIDAZOLE 500 MG TABLET PO SCH ×3 (05:21→20:29)
--- NOTE | 2018-01-05 07:12 | NUR ---
RN INITIAL NOTES: Rec'd pt on bed, not in any distress, obtunded. On MV via trach, sating at 100%. On telemonitor, SR 68 bpm. Has DENNY PICC line, w/ NS x 100 cc/hr infusing well. Has R IJ, G18, SL, flushing well but noted redness on the site, will remove line. Has GT patent & intact, w/ Jevity 1.2 x 40 cc/hr infusing well, no residual noted upon checking. Has FC draining to adequate yellowish UOP. Isolation prec observed. Provided comfort & safety measures. Bed kept low & in locked pos. Call light placed w/in reach. Will cont to monitor & attend pt needs. 0900H Report given to JOAQUIN Butler for JEWELL.
[2018-01-05] MEDS: ASCORBIC ACID 500 MG TABLET GT SCH (08:16)
[2018-01-05] MEDS: FERROUS SULFATE UDC 300 MG/5 ML UDC GT SCH (08:16)
[2018-01-05] MEDS: HYDROCORTISONE SOD SUCCINATE 100 MG/2 ML VIAL IV SCH ×2 (08:16→16:45)
[2018-01-05] MEDS: ZINC SULFATE 220 MG CAPSULE GT SCH (08:16)
[2018-01-05] MEDS: PANTOPRAZOLE 40 MG/PACK PACK GT SCH (08:17)
[2018-01-05] MEDS: PROSOURCE / PROSTAT (PYXIS) 30 ML UDC GT SCH ×3 (08:17→16:44)
[2018-01-05] MEDS: MULTIVIT, IRON, MIN NO. 8, FA 1 TAB GT SCH (08:17)
[2018-01-05] MEDS: LEVOTHYROXINE SODIUM 88 MCG TABLET GT SCH (08:17)
[2018-01-05] MEDS: DAKINS QUARTER STRENGTH (0.125%) 480 ML BOTTLE TOP SCH (08:17)
[2018-01-05] MEDS: ACIDOPHILUS/BULGARICUS 1 EACH TAB.CHEW GT SCH (08:17)
[2018-01-05 08:49] LABS: ABG BASE EXCESS -5.5 mmol/L; ABG OXYGEN SATURATION 93.2 % (92.0-98.5); ABG PCO2 34.7 mmHg (35.0-45.0); ABG PH 7.363 (7.350-7.450); ABG PO2 78.2 mmHg (75.0-100.0); AaDO2 94.9 mmHg; COHb 0.3 % (0.5-1.5); MetHb 1.1 % (0.0-1.5); O2Hb 91.9 % (94.0-97.0); SITE, ABG Right Radial
[2018-01-05] MEDS: POTASSIUM CHLORIDE 20 MEQ POWDER PACKET GT SCH ×5 (08:51→13:19)
--- NOTE | 2018-01-05 10:00 | NUR ---
RN NOTE Transferred patient via bed to room 109 from 260 using ACLS protocol. No any significant changes noted. VSS, BP 106/59. Vent settings tolerated well. Endorsed to Gwen NUÑEZ for JEWELL. All questions and concerns were answered. Meds endorsed. Still on 40mL/HR for GT feeding, 10mL residuals noted.Kept clean, warm and dry. Isolation precaution, maintained and observed.
[2018-01-05] MEDS: COLISTIMETHATE SODIUM 150 MG VIAL NEB SCH ×2 (10:24→21:39)
[2018-01-05] MEDS: CEFEPIME 1 GM in IV D5W 50 ML IV SCH (20:28)
[2018-01-05] MEDS: VANCOMYCIN 500 MG in IV D5W 100 ML IV SCH ×2 (23:18→23:52)
--- NOTE | 2018-01-05 23:27 | NUR ---
RN NOTES SPOKE WITH PHARMACIST ROX REGARDING VANCOMYCIN THROUGH AT 25. SHE SAID I CAN ADMINISTER THE VANCOMYCIN IV DOSE FOR MIDNIGHT DUE TO THE FACT THAT VANCOMYCIN DOSE WAS ALREADY HELD AND DECREASED TO Q24H. I SUGGESTED TO ORDER A TROUGH LEVEL. ROX SAID SHE WILL NOTIFY THE [facility] THAT VANCOMYCIN DOSE WAS ADMINISTERED AND A POSSIBLE NEED FOR TROUGH LEVEL
[2018-01-06] VITALS: BP_SYST 114; BP_DIAS 50; BP_DIAS 70
[2018-01-06 04:00] VITALS: BP 121/72
[2018-01-06] MEDS: METOCLOPRAMIDE HCL 10 MG/2 ML VIAL IV SCH ×3 (05:18→20:10)
[2018-01-06] MEDS: VANCOMYCIN HCL 125 MG/2.5 ML ORAL.SUSP PO SCH ×4 (05:18→23:46)
[2018-01-06] MEDS: METRONIDAZOLE 500 MG TABLET PO SCH ×3 (05:18→20:10)
[2018-01-06] MEDS: MIDODRINE HCL (5MG) 5 MG TABLET GT SCH ×3 (05:18→20:25)
[2018-01-06] MEDS: JEVITY 1.2 CAL 1,000 ML BOTTLE GT PRN (05:29)
[2018-01-06 07:02] LABS: CALCIUM, SERUM 8.1 mg/dL (8.5-10.1); CREATININE 1.2 mg/dL (0.6-1.3); POTASSIUM 3.1 mmol/L (3.5-5.1)
--- NOTE | 2018-01-06 07:15 | NUR ---
RN [facility] INITIAL NOTES RECEIVED PATIENT FROM PM NURSE, PATIENT RESTING IN BED WITH NO ACUTE DISTRESS NOTED, ON VENT TRACH PER MD ORDERS SAT ABOVE 97%, [place] CATH DRAINING URINE VIA GRAVITY, ON TELE MON SINUS RHTYME 72, ON GTUBE FEEDING NO RESIDUAL NOTED TOLERATING WELL, RIGHT ARM PICC LINE INTACT PATENT, ALL SAFETY MEASURES INITATED, ALL NEEDS MET, WILL CONTINUE TO MONITOR.
--- NOTE | 2018-01-06 07:33 | NUR ---
RT RECEIVED PT TRACH ON VENT, WITH NOTED SETTINGS. LENS GAUGER DONE AND TRACH IS SECURE. VENT ALARMS CHECKED AND AUDIBLE. VENT PLUGGED IN RED OUTLET. AMBU BAG NOTED HOB. SX WITH MOD THK WHITE SECRETIONS. BREATHING TX COLI WILL BE GIVEN AT SCHEDULED TIME. PT TOLERATING SETTINGS WELL. NO SOB OR RESP DISTRESS NOTED, WILL CONTINUE TO MONITOR T/O SHIFT. Addendum: 01/06/18 at 1501 by ZULMA VILLAFUERTE RT Amended: Links added.
[2018-01-06 08:00] VITALS: BP 130/74
[2018-01-06] MEDS: ACIDOPHILUS/BULGARICUS 1 EACH TAB.CHEW GT SCH (09:35)
[2018-01-06] MEDS: FERROUS SULFATE UDC 300 MG/5 ML UDC GT SCH (09:35)
[2018-01-06] MEDS: LEVOTHYROXINE SODIUM 88 MCG TABLET GT SCH (09:35)
[2018-01-06] MEDS: MULTIVIT, IRON, MIN NO. 8, FA 1 TAB GT SCH (09:36)
[2018-01-06] MEDS: HYDROCORTISONE SOD SUCCINATE 100 MG/2 ML VIAL IV SCH (09:36)
[2018-01-06] MEDS: PROSOURCE / PROSTAT (PYXIS) 30 ML UDC GT SCH ×3 (09:36→16:52)
[2018-01-06] MEDS: ASCORBIC ACID 500 MG TABLET GT SCH (09:36)
[2018-01-06] MEDS: ZINC SULFATE 220 MG CAPSULE GT SCH (09:36)
[2018-01-06] MEDS: DAKINS QUARTER STRENGTH (0.125%) 480 ML BOTTLE TOP SCH (09:37)
[2018-01-06] MEDS: PANTOPRAZOLE 40 MG/PACK PACK GT SCH (09:37)
[2018-01-06] MEDS: COLISTIMETHATE SODIUM 150 MG VIAL NEB SCH ×2 (10:16→21:02)
--- NOTE | 2018-01-06 10:19 | NUR ---
WOUND CARE CONSULT: RECEIVED WOUND CONSULT FOR RT INNER THIGH. PLASTIC SURGERY TEAM ON CASE FOR WOUNDS. DEFER TO SURGICAL TEAM FOR WOUND TREATMENT PLAN. ALL SKIN PROTECTION AND PRESSURE ULCER PREVENTION MEASURES IN PLACE AND DISCUSSED WITH NURSING STAFF. PT ON FIRST STEP SAL LOW AIRLOSS MATTRESS.
[2018-01-06] MEDS: IV NS 0.9% 1,000 ML IV PRN (11:37)
[2018-01-06] MEDS: POTASSIUM CHLORIDE 20 MEQ POWDER PACKET GT SCH ×5 (11:43→15:45)
[2018-01-06 12:00] VITALS: BP 105/68
--- NOTE | 2018-01-06 14:12 | NUR ---
TUBE WINDER HAND HANDOFF NOTES REPORT GIVEN TO BRITTANY NUÑEZ . JEWELL
[2018-01-06 16:00] VITALS: BP 122/77
--- NOTE | 2018-01-06 19:02 | NUR ---
RECEIVED AN ORDER FROM DR. CHRISTINA TO DOWNGRADE THE PATIENT FROM [facility] TO TELEMETRY.
--- NOTE | 2018-01-06 19:05 | NUR ---
RN NOTE PATIENT REMAINED STABLE THROUGHOUT SHIFT. NO ACUTE CHANGES OR DISTRESS NOTED. WILL ENDORSE TO NEXT SHIFT TO CONTINUE TO MONITOR CONTINUITY OF CARE.
--- NOTE | 2018-01-06 19:30 | NUR ---
INTERNET SALES DIRECTOR NOTE PT RECEIVED IN BED. ON MECH VENT WITH SETTINGS WELL TOLERATED AND SATURATING WELL. HOB ELEVATED. ON ASPIRATION PRECAUTIONS. GT FEEDING WELL TOLERATED AND NO RESIDUALS NOTED. ISOLATION PRECAUTIONS OBSERVED. [place] CATHETER IN PLACE AND DRAINING BY GRAVITY. WILL CONTINUE TO MONITOR.
--- NOTE | 2018-01-06 19:37 | NUR ---
PT RECEIVED WITH A [facility] 8 TRACH ON THE VENT WITH NOTED SETTINGS. VENT ALARMS ARE SET AND AUDIBLE WITH AMBU BAG @ BEDSIDE. 3RD PRESSMAN CUFF PRESSURE NOTED. VENT IS PLUGGED INTO RED OUTLET. COLISTIN GIVEN @ 21:00. NO ADVERSE REACTION NOTED. PT SX'D MODERATE THICK PALE YELLOW SECRETIONS. NO RESPIRATORY DISTRESS NOTED AT THIS TIME, WILL CONTINUE TO MONITOR.
[2018-01-06 20:00] VITALS: BP 108/68
[2018-01-06] MEDS: CEFEPIME 1 GM in IV D5W 50 ML IV SCH (20:10)
[2018-01-06] MEDS: VANCOMYCIN 500 MG in IV D5W 100 ML IV SCH (23:46)
[2018-01-07] VITALS (9 sets, daily range): BP systolic 98–113; BP diastolic 59–73
[2018-01-07] MEDS: METOCLOPRAMIDE HCL 10 MG/2 ML VIAL IV SCH ×3 (05:12→20:29)
[2018-01-07] MEDS: MIDODRINE HCL (5MG) 5 MG TABLET GT SCH ×3 (05:13→20:28)
[2018-01-07] MEDS: METRONIDAZOLE 500 MG TABLET PO SCH ×3 (05:13→20:28)
[2018-01-07] MEDS: VANCOMYCIN HCL 125 MG/2.5 ML ORAL.SUSP PO SCH ×3 (05:13→17:09)
[2018-01-07] MEDS: JEVITY 1.2 CAL 1,000 ML BOTTLE GT PRN (05:14)
[2018-01-07 06:49] LABS: POTASSIUM 3.7 mmol/L (3.5-5.1)
--- NOTE | 2018-01-07 06:50 | NUR ---
GYM SUPERVISOR NOTE PT REMAINED STABLE DURING SHIFT. NO ACUTE DISTRESS NOTED. ALL NEEDS ATTENDED TO PROMPTLY. REPOSITIONED Q2H. SUCTIONED NEEDED. KEPT CLEAN AND DRY. HOB ELEVATED. ISOLATION PRECAUTIONS MAINTAINED. WILL ENDORSE TO NEXT SHIFT FOR CONTINUITY OF CARE.
[2018-01-07 07:00] LABS: BASOPHILS % (AUTO) 0.1 % (0.0-2.0); EOSINOPHILS % (AUTO) 0.2 % (0.0-6.0); HEMATOCRIT 25 % (39-51); HEMOGLOBIN 8.1 g/dL (13.5-17.5); LYMPHOCYTES # (AUTO) 0.7 /CMM (0.8-4.8); LYMPHOCYTES % (AUTO) 5.9 % (20.0-44.0); MEAN CORPUSCULAR HGB CONC 33 g/dl (31.0-36.0); MEAN CORPUSCULAR VOLUME 107 fL (80-96); MONOCYTES # (AUTO) 1.1 /CMM (0.1-1.30); MONOCYTES % (AUTO) 9.5 % (2.0-12.0); NEUTROPHILS # (AUTO) 9.4 /CMM (1.8-8.9); NEUTROPHILS % (AUTO) 84.3 % (43.0-81.0); PLATELET COUNT (AUTO) 81 /CMM (150-450); RDW COEFFICIENT OF VARIATION 20.4 (11.5-15.0); RED BLOOD CELL COUNT(AUTO) 2.29 MIL/uL (4.5-6.0); WHITE BLOOD COUNT (AUTO) 11.2 K/uL (4.3-11.0)
--- NOTE | 2018-01-07 07:10 | NUR ---
RETAIL OFFICE MANAGER INITIAL NOTES RECEIVED PT IN BED. HOB ELEVATED TO SEMI-FOWLERS. EYES OPEN BUT NOT TRACKING. TRACH TO VENT SETTINGS MD ORDERED. PT NOT IN RESP DISTRESS. ON TELE SR 88. EDEMA BLE/BUE +2 PITTING. IVF RUNNING THRU DENNY PICC LINE. NO S/SX OF INFECTION. YELLOW CLEAR URINE DRAINING THRU F/C. SAFETY PRECAUTIONS IN PLACE. CALL LIGHT IN REACH. WILL CONT TO MONITOR.
[2018-01-07] MEDS: MULTIVIT, IRON, MIN NO. 8, FA 1 TAB GT SCH (08:29)
[2018-01-07] MEDS: PROSOURCE / PROSTAT (PYXIS) 30 ML UDC GT SCH ×3 (08:29→17:09)
[2018-01-07] MEDS: FERROUS SULFATE UDC 300 MG/5 ML UDC GT SCH (08:29)
[2018-01-07] MEDS: PANTOPRAZOLE 40 MG/PACK PACK GT SCH (08:29)
[2018-01-07] MEDS: ACIDOPHILUS/BULGARICUS 1 EACH TAB.CHEW GT SCH (08:30)
[2018-01-07] MEDS: LEVOTHYROXINE SODIUM 88 MCG TABLET GT SCH (08:30)
[2018-01-07] MEDS: ASCORBIC ACID 500 MG TABLET GT SCH (08:30)
[2018-01-07] MEDS: ZINC SULFATE 220 MG CAPSULE GT SCH (08:32)
[2018-01-07] MEDS: HYDROCORTISONE SOD SUCCINATE 100 MG/2 ML VIAL IV SCH (08:35)
[2018-01-07] MEDS: DAKINS QUARTER STRENGTH (0.125%) 480 ML BOTTLE TOP SCH (09:01)
[2018-01-07] MEDS: COLISTIMETHATE SODIUM 150 MG VIAL NEB SCH ×2 (09:40→22:13)
[2018-01-07] MEDS: IV D5W 1,000 ML IV PRN (11:03)
[2018-01-07 11:08] LABS: BAND % (MANUAL) 2 % (0.0-5.0); LYMPHOCYTES % (MANUAL) 6 % (16-48); NEUTROPHILS % (MANUAL) 85 (42-76)
[2018-01-07 11:09] LABS: MONOCYTES % (MANUAL) 7 % (0-11.0)
--- NOTE | 2018-01-07 12:00 | NUR ---
RN NOTES PT STABLE , TRACH SUCTIONING DONE, CONTINUE TO MONITOR
--- NOTE | 2018-01-07 18:53 | NUR ---
CLASSROOM MONITOR ENDING NOTES PT IN BED NO S/SX OF RESP DISTRESS OR PAIN. PT IS STABLE AT THIS TIME. SAFETY PRECAUTIONS IN PLACE. BED IN LOCKED/LOWEST POSITION. CALL LIGHT IN REACH.
--- NOTE | 2018-01-07 19:01 | NUR ---
RN NOTES NO SIGNIFICANT CHANGES NOTED ON THIS SHIFT, WILL ENDOSE TO NEXT SHIFT NURSE FOR CONTINUITY OF CARE .
[2018-01-07] MEDS: CEFEPIME 1 GM in IV D5W 50 ML IV SCH (20:29)
--- NOTE | 2018-01-07 20:32 | NUR ---
PT REC'D TRACHED ON [facility] VENT ON AC MODE. NO RESP DISTRESS OR SOB NOTED. TRACH PATENT AND SECURED. SX'D FOR THICK MOD AMT OF PALE YELLOW SPUTUM. VENT PLUGGED INTO RED OUTLET. ALARMS ARE SET AND AUDIBLE. AMBU BAG BEDSIDE. WILL CONTINUE TO MONITOR. Addendum: 01/08/18 at 0636 by CHAO HERNANDEZ RT Amended: Links added.
[2018-01-08] VITALS: BP_SYST 109; BP_SYST 111; BP_DIAS 67; BP_DIAS 69
[2018-01-08] MEDS: VANCOMYCIN HCL 125 MG/2.5 ML ORAL.SUSP PO SCH ×5 (00:39→23:10)
[2018-01-08] MEDS: VANCOMYCIN 500 MG in IV D5W 100 ML IV SCH ×2 (00:39→23:10)
[2018-01-08 04:00] VITALS: BP 92/62
[2018-01-08] MEDS: METOCLOPRAMIDE HCL 10 MG/2 ML VIAL IV SCH ×3 (05:16→20:49)
[2018-01-08] MEDS: MIDODRINE HCL (5MG) 5 MG TABLET GT SCH ×3 (05:17→20:50)
[2018-01-08] MEDS: METRONIDAZOLE 500 MG TABLET PO SCH ×3 (05:17→20:50)
[2018-01-08] MEDS: IV D5W 1,000 ML IV PRN (06:00)
--- NOTE | 2018-01-08 06:35 | NUR ---
RN NOTE PT REMAINS IN NO ACUTE DISTRESS IN BED. PT TOLERATED VENT SETTING WELL. PT DID NOT HAVE ANY SIGNIFICANT CHANGE IN CONDITION DURING SHIFT. ALL NEEDS MET, ALL ORDERS CARRIED OUT. WILL ENDORSE CARE TO AM RN FOR CONTINUITY OF CARE..
[2018-01-08 06:44] LABS: EOSINOPHILS % (AUTO) 0.5 % (0.0-6.0); HEMATOCRIT 24 % (39-51); HEMOGLOBIN 7.4 g/dL (13.5-17.5); LYMPHOCYTES # (AUTO) 0.6 /CMM (0.8-4.8); LYMPHOCYTES % (AUTO) 8.4 % (20.0-44.0); MEAN CORPUSCULAR HGB CONC 31 g/dl (31.0-36.0); MEAN CORPUSCULAR VOLUME 111 fL (80-96); MONOCYTES # (AUTO) 0.8 /CMM (0.1-1.30); NEUTROPHILS # (AUTO) 6.2 /CMM (1.8-8.9); NEUTROPHILS % (AUTO) 81.1 % (43.0-81.0); PLATELET COUNT (AUTO) 75 /CMM (150-450); RDW COEFFICIENT OF VARIATION 22.2 (11.5-15.0); RED BLOOD CELL COUNT(AUTO) 2.16 MIL/uL (4.5-6.0); WHITE BLOOD COUNT (AUTO) 7.7 K/uL (4.3-11.0)
[2018-01-08 07:01] LABS: CALCIUM, SERUM 7.3 mg/dL (8.5-10.1)
--- NOTE | 2018-01-08 07:15 | NUR ---
STOKER ERECTOR INITIAL NOTES RECEIVED REPORT AND PATIENT FROM PM NURSE. PATIENT RESTING IN BED WITH NO ACUTE DISTRESS NOTED, ALL NEEDS MET, ALL SAFETY MEASURES INITIATED, ON VENT TRACH OBTUNDED EYES OPEN SPONTANEOUSLY, ON TELE MON SINUS RHYTHM HEART RATE 88, [place] CATH DRAINING URINE VIA GRAVITY, ON GTUBE FEEDING TOLERATING WELL MD ORDERED NO RESIDUAL, RIGHT UPPER PICC LINE RUNNING FLUIDS MD ORDERED, NO INFILTRATION NOTED. WILL CONTINUE TO MONITOR.
[2018-01-08 07:22] LABS: POTASSIUM 2.5 mmol/L (3.5-5.1)
[2018-01-08 08:00] VITALS: BP 90/50
[2018-01-08] MEDS: PANTOPRAZOLE 40 MG/PACK PACK GT SCH (08:42)
[2018-01-08] MEDS: FERROUS SULFATE UDC 300 MG/5 ML UDC GT SCH (08:42)
[2018-01-08] MEDS: ASCORBIC ACID 500 MG TABLET GT SCH (08:42)
[2018-01-08] MEDS: ACIDOPHILUS/BULGARICUS 1 EACH TAB.CHEW GT SCH (08:42)
[2018-01-08] MEDS: ZINC SULFATE 220 MG CAPSULE GT SCH (08:42)
[2018-01-08] MEDS: HYDROCORTISONE SOD SUCCINATE 100 MG/2 ML VIAL IV SCH (08:42)
[2018-01-08] MEDS: POTASSIUM CHLORIDE 20 MEQ POWDER PACKET GT SCH ×5 (08:42→14:10)
[2018-01-08] MEDS: MULTIVIT, IRON, MIN NO. 8, FA 1 TAB GT SCH (08:42)
[2018-01-08] MEDS: DAKINS QUARTER STRENGTH (0.125%) 480 ML BOTTLE TOP SCH (08:43)
[2018-01-08] MEDS: PROSOURCE / PROSTAT (PYXIS) 30 ML UDC GT SCH ×3 (08:46→17:33)
[2018-01-08] MEDS: LEVOTHYROXINE SODIUM 88 MCG TABLET GT SCH (08:46)
[2018-01-08] MEDS: COLISTIMETHATE SODIUM 150 MG VIAL NEB SCH ×2 (09:42→21:04)
[2018-01-08 09:56] LABS: LYMPHOCYTES % (MANUAL) 8 % (16-48); MONOCYTES % (MANUAL) 8 % (0-11.0); NEUTROPHILS % (MANUAL) 84 (42-76)
[2018-01-08 12:00] VITALS: BP 93/56
[2018-01-08 16:00] VITALS: BP 90/46
--- NOTE | 2018-01-08 18:25 | NUR ---
CYLINDER DIE MACHINE HELPER ENDING NOTES PATIENT RESTING IN BED WITH NO ACUTE CHANGES NOTED, ALL NEEDS MET, BED BATH PROVIDED, WOUND TX PROVIDED, ALL DUE MEDS GIVEN, PT STABLE WILL ENDORSE TO PM NURSE.
[2018-01-08 20:00] VITALS: BP_SYST 151; BP_SYST 91; BP_DIAS 59; BP_DIAS 85
[2018-01-09] VITALS: BP 109/69
[2018-01-09] MEDS: IV D5W 1,000 ML IV PRN (02:06)
[2018-01-09 04:00] VITALS: BP 96/60
[2018-01-09] MEDS: METRONIDAZOLE 500 MG TABLET PO SCH ×2 (05:04→12:45)
[2018-01-09] MEDS: METOCLOPRAMIDE HCL 10 MG/2 ML VIAL IV SCH ×2 (05:04→11:32)
[2018-01-09] MEDS: JEVITY 1.2 CAL 1,000 ML BOTTLE GT PRN (05:04)
[2018-01-09] MEDS: VANCOMYCIN HCL 125 MG/2.5 ML ORAL.SUSP PO SCH ×2 (05:05→11:31)
[2018-01-09] MEDS: MIDODRINE HCL (5MG) 5 MG TABLET GT SCH ×2 (05:07→12:46)
[2018-01-09 06:42] LABS: CALCIUM, SERUM 7.5 mg/dL (8.5-10.1); CREATININE 0.9 mg/dL (0.6-1.3); MAGNESIUM 1.5 mg/dL (1.8-2.4); PHOSPHORUS 2.6 mg/dL (2.5-4.9)
[2018-01-09 06:44] LABS: POTASSIUM 2.5 mmol/L (3.5-5.1)
--- NOTE | 2018-01-09 07:25 | NUR ---
AGILE COACH NOTES CALLED DR.TIM MANRIQUE FOR LOW POTASSIUM,2.5.AWAITING FOR THE CALL BACK.
[2018-01-09 07:27] LABS: HEMATOCRIT 24 % (39-51); HEMOGLOBIN 7.8 g/dL (13.5-17.5); MEAN CORPUSCULAR HGB CONC 32 g/dl (31.0-36.0); MEAN CORPUSCULAR VOLUME 111 fL (80-96); RDW COEFFICIENT OF VARIATION 21.4 (11.5-15.0); RED BLOOD CELL COUNT(AUTO) 2.17 MIL/uL (4.5-6.0); WHITE BLOOD COUNT (AUTO) 7.4 K/uL (4.3-11.0)
[2018-01-09 07:28] LABS: BASOPHILS % (AUTO) 0.1 % (0.0-2.0); EOSINOPHILS % (AUTO) 0.3 % (0.0-6.0); LYMPHOCYTES # (AUTO) 0.8 /CMM (0.8-4.8); LYMPHOCYTES % (AUTO) 10.7 % (20.0-44.0); MONOCYTES # (AUTO) 0.9 /CMM (0.1-1.30); NEUTROPHILS # (AUTO) 5.7 /CMM (1.8-8.9); NEUTROPHILS % (AUTO) 76.9 % (43.0-81.0); PLATELET COUNT (AUTO) 67 /CMM (150-450)
[2018-01-09 08:00] VITALS: BP 107/70
[2018-01-09] MEDS: MULTIVIT, IRON, MIN NO. 8, FA 1 TAB GT SCH (08:16)
[2018-01-09] MEDS: LEVOTHYROXINE SODIUM 88 MCG TABLET GT SCH (08:16)
[2018-01-09] MEDS: ACIDOPHILUS/BULGARICUS 1 EACH TAB.CHEW GT SCH (08:16)
[2018-01-09] MEDS: FERROUS SULFATE UDC 300 MG/5 ML UDC GT SCH (08:16)
[2018-01-09] MEDS: ZINC SULFATE 220 MG CAPSULE GT SCH (08:16)
[2018-01-09] MEDS: PANTOPRAZOLE 40 MG/PACK PACK GT SCH (08:16)
[2018-01-09] MEDS: ASCORBIC ACID 500 MG TABLET GT SCH (08:18)
[2018-01-09] MEDS: PROSOURCE / PROSTAT (PYXIS) 30 ML UDC GT SCH ×3 (08:19→16:20)
--- NOTE | 2018-01-09 08:21 | NUR ---
PURCHASE ANALYST NOTES RECEIVEDAND PATIENT F. PATIENT RESTING IN BED WITH NO ACUTE DISTRESS NOTED, ALL NEEDS MET, ALL SAFETY MEASURES INITIATED, ON VENT TRACH OBTUNDED EYES OPEN SPONTANEOUSLY, ON TELE MON SINUS RHYTHM HEART RATE 72, [place] CATH DRAINING URINE VIA GRAVITY WITH YELLOW CLOUDY URINE ON GTUBE FEEDING TOLERATING WELL NO RESIDUAL, RIGHT UPPER PICC LINE RUNNING FLUIDS MD ORDERED, NO INFILTRATION NOTED. WILL CONTINUE TO MONITOR RT AT BEDSIDE, WILL CONT TO MONITOR CLOSELY
--- NOTE | 2018-01-09 08:25 | NUR ---
AUTOMAT WATCHER NOTES CALLED AGAIN DR.TIM MANRIQUE FOR LOW POTASSIUM 2.5,AWAITING FOR THE CALL BACK.
[2018-01-09] MEDS ORDERED: POTASSIUM CHLORIDE 20 MEQ POWDER PACKET GT ONE (09:00)
--- NOTE | 2018-01-09 09:00 | NUR ---
NUTRITION AND DIETETICS INSTRUCTOR NOTES DNP.MAE MANRIQUE CALLED BACK AND ORDERED POTASSIUM CHLORIDE
[2018-01-09] MEDS: POTASSIUM CL. PREMIX PERIPHER. 50 ML IV SCH ×4 (09:13→12:42)
[2018-01-09] MEDS: DAKINS QUARTER STRENGTH (0.125%) 480 ML BOTTLE TOP SCH (09:14)
[2018-01-09] MEDS: COLISTIMETHATE SODIUM 150 MG VIAL NEB SCH (09:36)
[2018-01-09 10:36] LABS: BAND % (MANUAL) 2 % (0.0-5.0); LYMPHOCYTES % (MANUAL) 7 % (16-48); METAMYELOCYTES % 1 % (0-0); MONOCYTES % (MANUAL) 11 % (0-11.0); NEUTROPHILS % (MANUAL) 79 (42-76)
[2018-01-09 12:00] VITALS: BP 91/58
[2018-01-09] MEDS ORDERED: Potassium Chloride 40 MEQ in IV D5W 1,000 ML IV PRN (12:00)
--- NOTE | 2018-01-09 13:00 | NUR ---
TELE RNN NOTE PER MAE ARGUELLO DNP OK TO DISCHARGE T[facility]
[2018-01-09] MEDS ORDERED: POTA10TA PO (13:13)
[2018-01-09] MEDS ORDERED: VANC125C11 PO (13:14)
[2018-01-09] MEDS ORDERED: METR500T PO (13:14)
[2018-01-09] MEDS: Magnesium 1GM/D5W 100ML PREMIX 100 ML IV SCH ×3 (13:34→15:39)
[2018-01-09 16:00] VITALS: BP 93/60
--- NOTE | 2018-01-09 16:06 | NUR ---
COLLEGE OR UNIVERSITY DEPARTMENT HEAD NOTE CALLED TO SNF ,REPORT GIVEN TO DIANA NUÑEZ
--- NOTE | 2018-01-09 17:30 | NUR ---
BLADDER CHANGER NOTE CHARGE NURSE SOON RN CALLED FAMILY, LEFT A MESSAGE THAT PATENT IS DISCHARGE TO SNF
--- NOTE | 2018-01-09 17:50 | NUR ---
TELE RNNNOTE PICC LINE REMOVED ORDERED ,NO BLEEDINGS, NO SOB NOTED ,REPORT GIVEN TO AMBULABCE CREW TELE REMOVED
--- NOTE | 2018-01-09 18:10 | NUR ---
BAKER CHEF NOTE AMBULANCE AT BEDSIDE REPORT GIVEN , TAKEN TO SNF WITH STABLE CONDITION
== END 2018-01-09 18:09 | DRG 981 ==
LOC: ER 21:20 → ICU 23:25 → TELE-TD 01-05 10:29 → TELE1 01-06 21:03
PROVIDERS: ADMIT Registered Nurse; ATTEND Registered Nurse
PROC: 5A1955Z Respiratory Ventilation, Greater than 96 Consecutive Hours (ICD-10-PCS; principal; 2017-12-30)
PROC: 02HV33Z Insertion of Infusion Device into Superior Vena Cava, Percutaneous Approach (ICD-10-PCS; 2017-12-31)
PROC: B548ZZA Ultrasonography of Superior Vena Cava, Guidance (ICD-10-PCS; 2017-12-31)
PROC: 0KBP0ZZ Excision of Left Hip Muscle, Open Approach (ICD-10-PCS; 2018-01-02)
PROC: 0KBN0ZZ Excision of Right Hip Muscle, Open Approach (ICD-10-PCS; 2018-01-02)
PROC: 30233N1 Transfusion of Nonautologous Red Blood Cells into Peripheral Vein, Percutaneous Approach (ICD-10-PCS; 2018-01-03)
DX: J95.851 Ventilator associated pneumonia (principal); A41.9 Sepsis, unspecified organism; L89.154 Pressure ulcer of sacral region, stage 4; L89.224 Pressure ulcer of left hip, stage 4; L89.214 Pressure ulcer of right hip, stage 4; R65.21 Severe sepsis with septic shock; N17.0 Acute kidney failure with tubular necrosis; J15.6 Pneumonia due to other Gram-negative bacteria; I21.A1 Myocardial infarction type 2; J96.21 Acute and chronic respiratory failure with hypoxia; E43 Unspecified severe protein-calorie malnutrition; G92 Toxic encephalopathy; R53.2 Functional quadriplegia; N39.0 Urinary tract infection, site not specified; Z99.11 Dependence on respirator [ventilator] status; E87.1 Hypo-osmolality and hyponatremia; E87.2 Acidosis; J44.0 Chronic obstructive pulmonary disease with (acute) lower respiratory infection; J90 Pleural effusion, not elsewhere classified; D68.9 Coagulation defect, unspecified; A04.72 Enterocolitis due to Clostridium difficile, not specified as recurrent; Z95.1 Presence of aortocoronary bypass graft; Z93.1 Gastrostomy status; Z93.0 Tracheostomy status; Z86.73 Personal history of transient ischemic attack (TIA), and cerebral infarction without residual deficits; Z87.891 Personal history of nicotine dependence; Z79.01 Long term (current) use of anticoagulants; R47.02 Dysphasia; Z88.8 Allergy status to other drugs, medicaments and biological substances; K21.9 Gastro-esophageal reflux disease without esophagitis; E03.9 Hypothyroidism, unspecified; Z79.899 Other long term (current) drug therapy; I48.91 Unspecified atrial fibrillation; D63.8 Anemia in other chronic diseases classified elsewhere; B96.89 Other specified bacterial agents as the cause of diseases classified elsewhere; Y82.9 Unspecified medical devices associated with adverse incidents; Y92.129 Unspecified place in nursing home as the place of occurrence of the external cause; E78.5 Hyperlipidemia, unspecified; E83.42 Hypomagnesemia; F09 Unspecified mental disorder due to known physiological condition; G40.909 Epilepsy, unspecified, not intractable, without status epilepticus; R13.10 Dysphagia, unspecified; Y84.8 Other medical procedures as the cause of abnormal reaction of the patient, or of later complication, without mention of misadventure at the time of the procedure; I25.10 Atherosclerotic heart disease of native coronary artery without angina pectoris; I12.9 Hypertensive chronic kidney disease with stage 1 through stage 4 chronic kidney disease, or unspecified chronic kidney disease; N18.9 Chronic kidney disease, unspecified; E11.22 Type 2 diabetes mellitus with diabetic chronic kidney disease; E87.6 Hypokalemia; D53.1 Other megaloblastic anemias, not elsewhere classified; E83.10 Disorder of iron metabolism, unspecified
CPT/HCPCS: 31720; 36415; 36600; 71045-TC; 80048-TC; 80053-TC; 80061-TC; 80076-TC; 80202-TC; 81000-TC; 82533; 82728-TC; 82803-TC; 83540-TC; 83605-TC; 83735-TC; 84100-TC; 84132-TC; 84439-TC; 84443-TC; 84484-TC; 85025-TC; 85027-TC; 85385-TC; 85610-TC; 85730-TC; 86850-TC; 86921-TC; 87040-TC; 87070-TC; 87081-TC; 87086-TC; 87186-TC; 93307-TC; 94003-TC; 94760-TC; 94762-TC; A4606; A6253; A6402; A6403; C1751; C9113; J0692; J0770; J1265; J1644; J1720; J2270; J2543; J2765; J3370; J3475; J3480; J3490; J7030; J7050; J7060; J7070; P9016-BL; Z7610